=== PATIENT | female | born 1975 | race American Indian/Alaskan Native ===

== ENCOUNTER 2016-09-30 20:31 | Inpatient (IN) | payer MEDICAID, OTHER ==
[2016-09-30 20:32] VITALS: BMI 18.3
[2016-09-30] MEDS ORDERED: Sodium Chloride 0.9% 1,000 ML IV STA (21:06)
--- NOTE | 2016-09-30 21:10 | ED PDOC ---
Arrival/HPI - History of Present Illness Time/Duration: 24 hours Symptom Onset: Sudden Symptom Course: Worsening Quality: Stabbing, Cramping <Jessica Desai - Last Filed: 09/30/16 22:37> <Prudencio Blackwell - Last Filed: 09/30/16 22:51> - General Chief Complaint: Abdominal Pain Time Seen by Provider: 09/30/16 20:37 - History of Present Illness Narrative History of Present Illness (Text): 09/30/16 21:07 40 y/o female with past medical history of pancreatitis and ETOH abuse presents for LUQ abdominal pain that radiates straight back and up to left side of chest. Pain began yesterday suddenly. Pain is constant and has been worsening. Patient states that she thought it was due to constipation and used a laxative and Gas X with minimal relief. Last Bm was yesterday normal in nature. patient denies having any F/C, SOB, dysuria, hematuria, increased urinary frequency, LE pain or swelling. patient drinks ETOH regularly. Last drink was 2 days ago. patient smokes about 12 ppd for about 15 yrs. Denies having any FHx of CAD. (Jessica Desai) Past Medical History - Provider Review Nursing Documentation Reviewed: Yes - Travel History Have you recently traveled outside [place] w/in the past 3 mons?: No - Infectious Disease Hx of Infectious Diseases: None - Reproductive Menopause: No - Cardiac Hx Cardiac Disorders: No - Pulmonary Hx Respiratory Disorders: No - Neurological Hx Neurological Disorder: No - HEENT Hx HEENT Disorder: No - Renal Hx Renal Disorder: No - Endocrine/Metabolic Hx Endocrine Disorders: No - Hematological/Oncological Hx Blood Disorders: No - Integumentary Hx Dermatological Disorder: No - Musculoskeletal/Rheumatological Hx Falls: No - Genitourinary/Gynecological Hx Genitourinary Disorders: No - Psychiatric Hx Substance Use: No - Surgical History Hx Cholecystectomy: Yes - Anesthesia Hx Anesthesia: Yes Hx Anesthesia Reactions: No <Jessica Desai - Last Filed: 09/30/16 22:37> Family/Social History - Physician Review Nursing Documentation Reviewed: Yes Family/Social History: Unknown Family HX. denies: CAD/MD Smoking Status: Light Smoker < 10 Cigarettes Daily Hx Alcohol Use: Yes (about 3 days a week) Frequency of alcohol use: Socially Hx Substance Use: No <Jessica Desai - Last Filed: 09/30/16 22:37> Allergies/Home Meds <Jessica Desai - Last Filed: 09/30/16 22:37> <Prudencio Blackwell - Last Filed: 09/30/16 22:51> Allergies/Adverse Reactions: Allergies No Known Allergies Allergy (Verified 09/30/16 20:48) Home Medications: Home Meds Medication Instructions Recorded Confirmed No Known Home Med 09/30/16 09/30/16 Review of Systems - Review of Systems Constitutional: Normal. absent: Fatigue, Fevers Eyes: Normal. absent: Eye Pain ENT: Normal. absent: Sore Throat, Rhinorrhea, Sinus Congestion Respiratory: Normal. absent: SOB, Cough, Sputum, Wheezing Cardiovascular: Chest Pain. absent: Palpitations, Edema, Calf Pain Gastrointestinal: Abdominal Pain (LUQ radiating to chest and back ), Nausea. absent: Constipation, Diarrhea, Vomiting, Hematemesis Genitourinary Female: Normal. absent: Dysuria, Frequency, Hematuria, Urine Output Changes Musculoskeletal: Back Pain. absent: Arthralgias, Neck Pain, Joint Swelling Skin: Normal. absent: Rash, Pruritis, Skin Lesions Neurological: absent: Headache, Dizziness Endocrine: Normal. absent: Diaphoresis, Polyuria, Polydipsia Hemo/Lymphatic: Normal. absent: Adenopathy, Easy Bleeding Psychiatric: Anxiety. absent: Depression <Jessica Desai - Last Filed: 09/30/16 22:37> Physical Exam Vital Signs Reviewed: Yes Temperature: Afebrile Blood Pressure: Normal Pulse: Regular Respiratory Rate: Normal Appearance: Positive for: Well-Appearing, Non-Toxic, Comfortable Pain Distress: Moderate Mental Status: Positive for: Alert and Oriented X 3 - Systems Exam Head: Present: Atraumatic, Normocephalic Mouth: Present: Moist Mucous Membranes Respiratory/Chest: Present: Clear to Auscultation, Good Air Exchange. No: Respiratory Distress, Accessory Muscle Use, Wheezes, Rales, Rhonchi Cardiovascular: Present: Regular Rate and Rhythm, Normal S1, S2. No: Murmurs, Rub, Gallop, Muffled Abdomen: Present: Tenderness (LUQ and epigastric ), Normal Bowel Sounds, Guarding. No: Distention, Peritoneal Signs, Rebound Lower Extremity: Present: Normal Inspection, NORMAL PULSES. No: Edema, CALF TENDERNESS Neurological: Present: GCS=15, Speech Normal. No: Motor Func Grossly Intact Skin: Present: Warm, Dry, Normal Color. No: Rashes, Cold, Pale Psychiatric: Present: Alert, Oriented x 3, Normal Insight, Normal Concentration , Anxious <Jessica Desai - Last Filed: 09/30/16 22:37> Medical Decision Making - EKG Interpretation Interpreted by ED Physician: Yes Type: 12 lead EKG <Jessica Desai - Last Filed: 09/30/16 22:37> - Lab Interpretations I have reviewed the lab results: Yes - EKG Interpretation Interpreted by ED Physician: Yes Type: 12 lead EKG <Prudencio Blackwell - Last Filed: 09/30/16 22:51> ED Course and Treatment: 09/30/16 21:13 40 y/o F wpresents for LUQ abd pain radiating to back and chest likely 2/2 acute pancreatitis vs. GERD vs. nephrolithiasis vs. CAD Will check CBC, CMP, lipase, cardiac enzymes, EKG and CT abd/pelvis without contrast, urinalysis and urine HCG Patient will be given NS 1 L bolus, tylenol for pain and Ativan 1 mg IV for ETOH withdrawal. 09/30/16 22:03 Lipase is noted to be 1200. Dr. Dias is contacted and accepts patient under hospitalists service. (Jessica Desai) Impression: Pt seen and evaluated with manager medical. Pt, whose past medical history includes pancreatitis and alcohol abuse, presented for LUQ pain radiating to back and left chest. Pt regularly drinks alcohol, last drink was 2 days prior. Aware and agree with HPI, clinical findings, plan, and management. Plan: -- CT Abdomen and Pelvis w/o contrast -- EKG -- Chest X-ray -- Labs, lipase, cardiac enzymes -- Urinalysis -- IV fluids -- Tylenol -- Ativan -- Reassess and disposition 09/30/16 22:05 Case discussed with manager medical fiberglass bonding machine tender, who is aware and agrees with plan. Case discussed with Dr. Dias, who is aware and agrees with plan. Accepts pt in to hospitalist service. Pt will be admitted to Telemetry for pancreatitis and alcohol withdrawal syndrome. (Prudencio Blackwell) - Lab Interpretations Lab Results: 09/30/16 21:20 09/30/16 21:20 Lab Results 09/30/16 21:20: Sodium 135, Potassium 3.7, Chloride 94 L, Carbon Dioxide 27, Anion Gap 18, BUN 6 L, Creatinine 0.6, Est GFR ( Amer) > 60, Est GFR (Non -Af Amer) > 60, Random Glucose 92, Calcium 9.6, Total Bilirubin 1.2, AST 215 H, ALT 92 H, Alkaline Phosphatase 124, Lactate Dehydrogenase 817 H, Total Creatine Kinase 145, Troponin I < 0.01, Total Protein 8.2, Albumin 4.5, Globulin 3.7, Albumin/Globulin Ratio 1.2, Lipase 1213 H 09/30/16 21:20: WBC 4.6, RBC 4.69, Hgb 12.2, Hct 34.4 L, MCV 73.3 L, MCH 26.0, MCHC 35.5, RDW 19.9 H, Plt Count 115 L, MPV 8.9 - RAD Interpretation Radiology Orders: 09/30/16 21:02 CHEST PORTABLE [RAD] Stat 09/30/16 21:06 ABD & PELVIS W/O PO OR IV CONT [CT] Stat - EKG Interpretation EKG Interpretation (Text): 09/30/16 21:58 NSR HR of 67. No ST changes, normal axis, normal intervals (Karim,Jessica) - Medication Orders Current Medication Orders: Sodium Chloride (Sodium Chloride 0.9%) 1,000 mls @ 200 mls/hr IV .Q5H ARLENE Discontinued Medications Acetaminophen (Tylenol 325mg Tab) 650 mg PO STAT STA Stop: 09/30/16 21:07 Last Admin: 09/30/16 22:05 Dose: Sodium Chloride (Sodium Chloride 0.9%) 1,000 mls @ 999 mls/hr IV .Q1H1M STA Stop: 09/30/16 22:06 Last Admin: 09/30/16 21:36 Dose: 999 mls/hr Ketorolac Tromethamine (Toradol) 30 mg IVP STAT STA Stop: 09/30/16 21:51 Last Admin: 09/30/16 22:04 Dose: 30 mg Lorazepam (Ativan) 0.5 mg IVP ONCE ONE PRN Reason: Protocol Stop: 09/30/16 21:15 Last Admin: 09/30/16 21:35 Dose: 0.5 mg Ondansetron HCl (Zofran Inj) 4 mg IVP ONCE ONE Stop: 09/30/16 21:41 Last Admin: 09/30/16 21:45 Dose: 4 mg Ondansetron HCl (Zofran Inj) Confirm Administered Dose 4 mg .ROUTE .STK-MED ONE Stop: 09/30/16 21:43 Last Admin: 09/30/16 21:44 Dose: - PA / DRAWING INSTRUCTOR / Resident Statement NURIA has reviewed & agrees with the documentation as recorded. NURIA has examined the patient and agrees with the treatment plan. <Prudencio Blackwell - Last Filed: 09/30/16 22:51> Disposition/Present on Arrival - Present on Arrival Any Indicators Present on Arrival: No History of DVT/PE: No History of Uncontrolled Diabetes: No Urinary Catheter: No History of Decub. Ulcer: No History Surgical Site Infection Following: None - Disposition Have Diagnosis and Disposition been Completed?: Yes Disposition Time: 22:03 Patient Plan: Admission <Jessica Desai - Last Filed: 09/30/16 22:37> <Prudencio Blackwell - Last Filed: 09/30/16 22:51> - Disposition Diagnosis: Pancreatitis Disposition: HOSPITALIZED Patient Problems: Current Active Problems Problem Status Onset Pancreatitis Acute Condition: STABLE
[2016-09-30 21:32] LABS: HEMATOCRIT 34.4 % (36.0-48.0); MEAN CELL VOLUME 73.3 fl (80.0-105.0); MEAN CORPUSCULAR HGB CONC 35.5 g/dl (31.0-37.0); MEAN PLATELET VOLUME 8.9 fl (7.0-11.0); RED CELL DISTRIBUTION WIDTH 19.9 % (11.5-14.5); WHITE BLOOD COUNT 4.6 10^3/ul (4.5-11.0)
[2016-09-30 21:45] LABS: ALB/GLOB RATIO 1.2 (1.1-1.8); ALKALINE PHOSPHATASE 124 U/L (38-133); ALT/SGPT 92 U/L (7-56); AST/SGOT 215 U/L (15-39); BILIRUBIN,TOTAL 1.2 mg/dL (0.2-1.3); BLOOD UREA NITROGEN 6 mg/dL (7-21); CALCIUM 9.6 mg/dL (8.4-10.5); CARBON DIOXIDE 27 mmol/L (21-33); CHLORIDE 94 mmol/L (98-107); GFR AFRICAN-AMERICAN > 60; GLUCOSE,RANDOM 92 mg/dL (70-110); LIPASE 1213 U/L (23-300); POTASSIUM 3.7 mmol/L (3.6-5.0); SODIUM 135 mmol/L (132-148); TOTAL PROTEIN 8.2 g/dL (5.8-8.3)
[2016-09-30 21:56] LABS: TROPONIN I < 0.01 ng/mL
[2016-09-30] MEDS ORDERED: Sodium Chloride 0.9% 1,000 ML IV SCH (22:15)
[2016-09-30 22:20] LABS: PH,URINE 7.5 (4.7-8.0); URINE BILIRUBIN MODERATE (NEGATIVE); URINE BLOOD NEGATIVE (NEGATIVE); URINE GLUCOSE (UA) NEGATIVE (NEGATIVE); URINE KETONE >=80 mg/dL (NEGATIVE); URINE LEUKOCYTE ESTERASE TRACE Leu/uL (NEGATIVE); URINE PROTEIN 100 mg/dL (<30 mg/dL)
[2016-09-30 22:49] LABS: URINE APPEARANCE CLEAR (CLEAR); URINE COLOR YELLOW (YELLOW)
[2016-09-30 22:51] LABS: URINE BACTERIA RARE (NEG)
--- NOTE | 2016-09-30 23:45 | CT ---
EXAM: CT Abdomen and Pelvis Without Intravenous Contrast CLINICAL HISTORY: 40 years old, female; Pain; Abdominal pain; Acute TECHNIQUE: Axial computed tomography images of the abdomen and pelvis without intravenous contrast. All CT scans at this facility use one or more dose reduction techniques, viz.: automated exposure control; ma/kV adjustment per patient size (including targeted exams where dose is matched to indication; i.e. head); or iterative reconstruction technique. Coronal and sagittal reformatted images were created and reviewed. COMPARISON: CT - ABD PELVIS IV CONTRAST ONLY 03/12/2016 3:49:01 AM FINDINGS: Lower thorax: The bilateral lung bases are clear. ABDOMEN: Liver: Marked steatosis. Hepatomegaly. Gallbladder and bile ducts: The gallbladder is surgically absent. No intra-extrahepatic biliary ductal dilation. Pancreas: Enlargement of the head of the pancreas, with edema and loss of normal fatty lobulation. Peripancreatic fat stranding is also present, along with trace free fluid. Inflammatory change adjacent to Spleen: No acute findings. Adrenals: No acute findings. Kidneys and ureters: No obstructing stones. No hydronephrosis. PELVIS: Bladder: No acute findings. Reproductive: No acute findings. Appendix: The appendix is of normal-caliber (series 2, image 113; series 601, image 41). ABDOMEN and PELVIS: Stomach and bowel: As above.. Peritoneum: As above. Lymph nodes: Limited evaluation without intravenous contrast. Vasculature: Unremarkable. Bones: No acute fracture. IMPRESSION: Findings consistent with acute pancreatitis, as detailed above.
[2016-10-01] MEDS: Morphine 2 mg/ml ISec IVP PRN ×4 (01:00→22:41)
[2016-10-01] MEDS: Lactated Ringer's 1,000 ML IV SCH ×5 (01:01→21:23)
[2016-10-01 07:46] LABS: ADD MANUAL DIFF? NO
[2016-10-01 08:04] LABS: ALB/GLOB RATIO 1.2 (1.1-1.8); ALKALINE PHOSPHATASE 101 U/L (38-133); ALT/SGPT 74 U/L (7-56); AST/SGOT 133 U/L (15-39); BLOOD UREA NITROGEN 5 mg/dL (7-21); CALCIUM 8.6 mg/dL (8.4-10.5); CARBON DIOXIDE 25 mmol/L (21-33); CHLORIDE 96 mmol/L (98-107); GFR AFRICAN-AMERICAN > 60; GLUCOSE,RANDOM 69 mg/dL (70-110); MAGNESIUM 1.1 mg/dL (1.7-2.2); POTASSIUM 3.4 mmol/L (3.6-5.0); SODIUM 133 mmol/L (132-148); TOTAL PROTEIN 6.6 g/dL (5.8-8.3)
--- NOTE | 2016-10-01 08:04 | CP.PCM.HP ---
<ShivaBranden - Last Filed: 10/01/16 08:27> History of Present Illness - History of Present Illness History of Present Illness: IM H&P for hospitalist service CC: Abdominal pain, nausea, emesis HPI: This is a 40 yo AA F with PMH of EtOH abuse, Substance abuse, and pancreatitis who presents with complaint of intermittent sharp abdominal pain x2 days with accompanying nausea and 2x episodes of non-bloody non-bilious emesis today. Patient reports similar pains in the past, and initially attempted to wait the pain out yesterday, but as it got worse and she began vomitting, she presented to the ED. Also reports pain radiating to left chest. Denies shortness of breath, fevers/chills, constipation, focal weakness, or dizziness, but admits to watery diarrhea x 1 day. Hx of cholecystectomy 1 yr prior, reports no issues with retained stones in the past. Remainder of 12- point ROS review negative. PMH: as above PSH: Cholecystectomy 2015 SHx: admits ciagrettes (1/2 pack per day intermittently over 15 years), EtOH (2 + glasses of vodka daily), denies illicits/IVDA but UTox (+) for Opiates/Cocaine /Canabinoids FHx: Denies PMD: None Present on Admission - Present on Admission Any Indicators Present on Admission: No History of DVT/PE: No History of Uncontrolled Diabetes: No Urinary Catheter: No Review of Systems - Review of Systems All systems: reviewed and no additional remarkable complaints except (as per HPI ) Past Patient History - Infectious Disease Hx of Infectious Diseases: None - Past Social History Smoking Status: Never Smoked - CARDIAC Hx Cardiac Disorders: No - PULMONARY Hx Respiratory Disorders: No - NEUROLOGICAL Hx Neurological Disorder: No - HEENT Hx HEENT Problems: No - RENAL Hx Chronic Kidney Disease: No - ENDOCRINE/METABOLIC Hx Endocrine Disorders: No - HEMATOLOGICAL/ONCOLOGICAL Hx Blood Disorders: No - INTEGUMENTARY Hx Dermatological Problems: No - MUSCULOSKELETAL/RHEUMATOLOGICAL Hx Falls: No - GASTROINTESTINAL Hx Gall Bladder Disease: Yes Other/Comment: pancreatitis. alcohol abuse - GENITOURINARY/GYNECOLOGICAL Hx Genitourinary Disorders: No - PSYCHIATRIC Hx Substance Use: No - SURGICAL HISTORY Hx Cholecystectomy: Yes - ANESTHESIA Hx Anesthesia: Yes Hx Anesthesia Reactions: No Meds Allergies/Adverse Reactions: Allergies Allergy/AdvReac Type Severity Reaction Status Date / Time No Known Allergies Allergy Verified 09/30/16 20:48 Physical Exam - Constitutional Appears: Non-toxic, No Acute Distress, Chronically Ill - Head Exam Head Exam: ATRAUMATIC, NORMAL INSPECTION, NORMOCEPHALIC - Eye Exam Eye Exam: EOMI, Normal appearance. absent: Conjunctival injection, Scleral icterus Pupil Exam: absent: Irregular, Unequal - ENT Exam ENT Exam: Mucous Membranes Moist - Neck Exam Neck exam: Positive for: Lymphadenopathy, Thyromegaly - Respiratory Exam Respiratory Exam: Clear to Auscultation Bilateral, NORMAL BREATHING PATTERN. absent: Accessory Muscle Use, Chest Wall Tenderness, Decreased Breath Sounds, Prolonged Expiratory Phase, Rales, Rhonchi, Wheezes, Respiratory Distress, Stridor - Cardiovascular Exam Cardiovascular Exam: Clicks, REGULAR RHYTHM, RRR, +S1, +S2, Systolic Murmur. absent: Bradycardia, Tachycardia, Irregular Rhythm, +S4 - GI/Abdominal Exam GI & Abdominal Exam: Diminished Bowel Sounds, Soft, Tenderness (primarily epigastric, some along bilateral lower quadrants extending into flanks L>R). absent: Hyperactive Bowel Sounds, Hypoactive Bowel Sounds, Normal Bowel Sounds, Organomegaly - Rectal Exam Rectal Exam: Deferred - Extremities Exam Extremities exam: Positive for: normal inspection, pedal pulses present. Negative for: calf tenderness, pedal edema, tenderness - Back Exam Back exam: CVA tenderness (L) (L>R), CVA tenderness (R) (mild), NORMAL INSPECTION. absent: paraspinal tenderness, rash noted - Neurological Exam Neurological exam: Alert, Oriented x3 - Psychiatric Exam Psychiatric exam: Anxious, Normal Affect - Skin Skin Exam: Dry, Intact, Normal Color, Warm Results - Vital Signs Recent Vital Signs: Last Vital Signs Temp 98.8 F 10/01/16 05:22 Pulse 59 L 10/01/16 05:22 Resp 20 10/01/16 05:22 BP 145/62 10/01/16 05:22 Pulse Ox 99 10/01/16 05:22 - Labs Result Diagrams: 10/01/16 07:42 10/01/16 07:42 Labs: Laboratory Results - last 24 hr 10/01/16 10/01/16 00:45 04:00 Beta HCG, Quant < 2.39 Urine Opiates Screen Positive H Urine Methadone Screen Negative Ur Barbiturates Screen Negative Ur Phencyclidine Scrn Negative Ur Amphetamines Screen Negative U Benzodiazepines Scrn Negative U Oth Cocaine Metabols Positive H U Cannabinoids Screen Positive H Assessment & Plan - Assessment and Plan (Free Text) Assessment: This is a 40 yo AA F with PMH of EtOH abuse, Substance abuse, and pancreatitis who presents with complaint of intermittent sharp abdominal pain x2 days with accompanying nausea and 2x episodes of non-bloody non-bilious emesis today. She is being admitted for pancreatitis, 2/2 alcohol abuse vs retained gallstone. Plan: 1) Abdominal Pain with nausea and emesis -likely pancreatitis 2/2 alcohol abuse vs gallstone pacreatitis vs eteritis -Lipase in the ED 1213, TBili wnl, AST 215, ALT 92, Alk Phos 124 -Alcohol level < 10, but UTox positive for cocaine, opiates, and cannabinoids -NPO, LR at 200cc/hr, pain control with morphine 2q4 IV PRN -GI consulted, appreciate all recs -Protonix for GI ppx, Zofran PRN for nausea/emesis 2) Abdominal pain radiating to chest -likely 2/2 pancreatitis, but need to rule out ACS -Trop in ED negative x1, trend 2 more q8 -EKG in ED sinus 3) Polysubstance abuse -patient denies abuse, only admits to regular EtOH use but doesn't believe to be a problem, 0/4 on CAGE questionnaire -watch for withdrawal and manage accordingly -patient continues to denies abusing other substances despite UTox results, no utility in consulting Psych at this time Dispo: Telemetry, pending ACS r/o and IVF rehydration, pending GI eval and input FEN: NPO, LR 200cc/hr Access: Peripheral IV Consults: GI Ppx: Protonix for GI, SCDs for DVT Patient reviewed and discussed with attending, Dr. Dias. Decision To Admit - Pt Status Changed To: Hospital Disposition Of: Inpatient Admission - Admit Certification Admit to Inpatient:: After my assessment, the patient will require hospitalization for at least two midnights. This is because of the severity of symptoms shown, intensity of services needed, and/or the medical risk in this patient being treated as an outpatient. - . Bed Request Type: Telemetry <Betzy Dias - Last Filed: 10/01/16 22:59> Results - Vital Signs Recent Vital Signs: Last Vital Signs Temp 98.6 F 10/01/16 16:33 Pulse 106 H 10/01/16 18:00 Resp 21 10/01/16 16:33 BP 149/90 10/01/16 16:33 Pulse Ox 99 10/01/16 05:22 - Labs Result Diagrams: 10/01/16 07:42 10/01/16 07:42 Labs: Laboratory Results - last 24 hr 10/01/16 10/01/16 10/01/16 00:45 04:00 07:42 WBC 5.4 RBC 4.37 Hgb 11.3 L Hct 31.4 L MCV 71.9 L MCH 25.9 MCHC 36.0 RDW 19.4 H Plt Count 100 L MPV 9.8 Gran % 50.8 Lymph % (Auto) 36.4 H [place] % (Auto) 11.3 H Eos % (Auto) 0.9 L Baso % (Auto) 0.6 Gran # 2.75 Lymph # 2.0 [place] # 0.6 Eos # 0.1 Baso # 0.03 Sodium Potassium Chloride Carbon Dioxide Anion Gap BUN Creatinine Est GFR ( Amer) Est GFR (Non-Af Amer) Random Glucose Calcium Phosphorus Magnesium Total Bilirubin AST ALT Alkaline Phosphatase Troponin I Total Protein Albumin Globulin Albumin/Globulin Ratio Beta HCG, Quant < 2.39 Urine Opiates Screen Positive H Urine Methadone Screen Negative Ur Barbiturates Screen Negative Ur Phencyclidine Scrn Negative Ur Amphetamines Screen Negative U Benzodiazepines Scrn Negative U Oth Cocaine Metabols Positive H U Cannabinoids Screen Positive H 10/01/16 10/01/16 10/01/16 07:42 09:10 16:51 WBC RBC Hgb Hct MCV MCH MCHC RDW Plt Count MPV Gran % Lymph % (Auto) [place] % (Auto) Eos % (Auto) Baso % (Auto) Gran # Lymph # [place] # Eos # Baso # Sodium 133 Potassium 3.4 L Chloride 96 L Carbon Dioxide 25 Anion Gap 15 BUN 5 L Creatinine 0.6 Est GFR ( Amer) > 60 Est GFR (Non-Af Amer) > 60 Random Glucose 69 L Calcium 8.6 Phosphorus 3.0 Magnesium 1.1 L Total Bilirubin 1.0 AST 133 H ALT 74 H Alkaline Phosphatase 101 Troponin I < 0.01 < 0.01 Total Protein 6.6 Albumin 3.5 Globulin 3.0 Albumin/Globulin Ratio 1.2 Beta HCG, Quant Urine Opiates Screen Urine Methadone Screen Ur Barbiturates Screen Ur Phencyclidine Scrn Ur Amphetamines Screen U Benzodiazepines Scrn U Oth Cocaine Metabols U Cannabinoids Screen Attending/Attestation - Attestation I have personally seen and examined this patient.: Yes I have fully participated in the care of the patient.: Yes I have reviewed all pertinent clinical information: Yes Notes (Text): 10/01/16 22:58 Agree with history, physical examination, assessment and plan. Patient was seen when she was in bed # 6 in the ER.
[2016-10-01 08:15] LABS: BASO % 0.6 % (0.0-3.0); EOS % 0.9 % (1.5-5.0); GRAN % 50.8 % (50.0-68.0); HEMATOCRIT 31.4 % (36.0-48.0); LYMPH % 36.4 % (22.0-35.0); MEAN CELL VOLUME 71.9 fl (80.0-105.0); MEAN CORPUSCULAR HEMOGLOBIN 25.9 pg (25.0-35.0); MEAN PLATELET VOLUME 9.8 fl (7.0-11.0); MONO % 11.3 % (1.0-6.0); PLATELET COUNT 100 10^3/uL (120.0-450.0); RED CELL DISTRIBUTION WIDTH 19.4 % (11.5-14.5); WHITE BLOOD COUNT 5.4 10^3/ul (4.5-11.0)
[2016-10-01 08:16] LABS: BASO # 0.03 K/mm3 (0.0-2.0); EOS # 0.1 (0.0-0.7); GRAN # 2.75 (1.4-6.5); MONO # 0.6 (0.1-0.6)
--- NOTE | 2016-10-01 08:59 | RAD ---
HISTORY: Chest pain. Technique: Portable study performed @ 22:25. COMPARISON: 03/12/2016. FINDINGS: LUNGS: No active pulmonary disease. PLEURA: No significant pleural effusion identified, no pneumothorax apparent. CARDIOVASCULAR: Normal. OSSEOUS STRUCTURES: No significant abnormalities. VISUALIZED UPPER ABDOMEN: Normal. OTHER FINDINGS: None. IMPRESSION: No active disease. No significant interval change compared to the prior examination(s). No preliminary report provided by emergency department personnel.
[2016-10-01] MEDS ORDERED: Potassium Chloride 40 mEq/30 ml LIQ UD PO ONE (13:39)
[2016-10-01] MEDS: Enoxaparin 40 mg Syringe SC SCH (13:57)
--- NOTE | 2016-10-01 13:58 | CARD ---
APPROVED REPORT EKG Measurement Heart [id number] <Conclusion> Normal sinus rhythm Normal ECG
--- NOTE | 2016-10-02 00:56 | CON ---
DATE: 10/01/2016 REQUESTING PHYSICIAN: Dr. Cunningham. REASON FOR CONSULTATION: I have been asked to see this 40-year-old female, who comes to the hospital with a 1-day history of abdominal pain. The patient has a known history of alcohol and polysubstance abuse. She had four shots of tequila several days ago. The patient was hospitalized 7 months ago with alcohol-induced pancreatitis. She had a cholecystectomy last year. CT scan of the abdomen and pelvis reveals an enlarged head of the pancreas secondary to edema with peripancreatic inflammation and fluid. A urine tox screen is positive for cannabis, opiates and cocaine. PAST MEDICAL HISTORY: Notable for alcohol-induced pancreatitis, polysubstance abuse. SOCIAL HISTORY: She consumes alcohol on an excessive basis. She smokes marijuana. She denies opiates or cocaine use, but these were positive in her urine. FAMILY HISTORY: Noncontributory. REVIEW OF SYSTEMS: A 14-point review of systems is notable for abdominal pain, nausea and vomiting. PHYSICAL EXAMINATION: GENERAL: A well-developed female lying in bed in no acute distress. VITAL SIGNS: Reveal a temperature of 97, blood pressure 143/93, heart rate 70. HEENT: Reveal sclerae to be white. Conjunctivae pale. NECK: Supple. CHEST: Reveal lungs to be clear. HEART: Reveals regular rate and rhythm. ABDOMEN: Soft. There is mild midabdominal tenderness. No rebound. No guarding. EXTREMITIES: Show no edema. LABORATORY DATA: Reveal white blood cell count 5.4, hemoglobin 11.3. Chemistries reveal potassium 3.4, AST 133, ALT 74. Lipase was 1213. IMPRESSION: This is a 40-year-old female with polysubstance abuse including marijuana, cocaine, opiates, alcohol with a recurrent acute pancreatitis. RECOMMENDATIONS: 1. Continue IV fluids. 2. N.p.o. 3. Analgesics. 4. Zofran as needed for vomiting. Tristan Delgado MD
[2016-10-02] MEDS: Lactated Ringer's 1,000 ML IV SCH ×4 (02:49→16:00)
[2016-10-02 05:58] LABS: ADD MANUAL DIFF? NO
[2016-10-02 06:01] LABS: BASO # 0.02 K/mm3 (0.0-2.0); BASO % 0.4 % (0.0-3.0); EOS # 0.1 (0.0-0.7); EOS % 1.4 % (1.5-5.0); GRAN % 58.2 % (50.0-68.0); HEMATOCRIT 32.5 % (36.0-48.0); LYMPH # 1.6 (1.2-3.4); LYMPH % 30.5 % (22.0-35.0); MEAN CELL VOLUME 74.4 fl (80.0-105.0); MEAN CORPUSCULAR HEMOGLOBIN 25.6 pg (25.0-35.0); MEAN CORPUSCULAR HGB CONC 34.5 g/dl (31.0-37.0); MONO # 0.5 (0.1-0.6); MONO % 9.5 % (1.0-6.0); PLATELET COUNT 97 10^3/uL (120.0-450.0); RED CELL DISTRIBUTION WIDTH 19.1 % (11.5-14.5); WHITE BLOOD COUNT 5.2 10^3/ul (4.5-11.0)
[2016-10-02] MEDS: Morphine 2 mg/ml ISec IVP PRN ×3 (06:31→20:09)
[2016-10-02 06:46] LABS: ALB/GLOB RATIO 1.2 (1.1-1.8); ALKALINE PHOSPHATASE 105 U/L (38-133); ALT/SGPT 62 U/L (7-56); AST/SGOT 94 U/L (15-39); BILIRUBIN,TOTAL 0.8 mg/dL (0.2-1.3); BLOOD UREA NITROGEN < 2 mg/dL (7-21); CARBON DIOXIDE 30 mmol/L (21-33); CHLORIDE 93 mmol/L (95-110); GFR AFRICAN-AMERICAN > 60; GLUCOSE,RANDOM 97 mg/dL (70-110); POTASSIUM 3.5 mmol/L (3.6-5.0); SODIUM 134 mmol/L (132-148)
[2016-10-02] MEDS ORDERED: Magnesium Sulfate 2 GM in Sodium Chloride 0.9% 100 ML IVPB ONE (07:28)
[2016-10-02] MEDS: Potassium Chloride 20 mEq ER Tab PO SCH ×2 (07:53→08:00)
[2016-10-02] MEDS ORDERED: Potassium Chloride 20 mEq ER Tab PO SCH (08:00)
[2016-10-02] MEDS: Potassium Chloride 40 mEq/30 ml LIQ UD PO SCH ×2 (08:23→12:06)
[2016-10-02] MEDS: Potassium & Sodium Phosphate PO SCH (10:09)
[2016-10-02] MEDS: Enoxaparin 40 mg Syringe SC SCH (10:10)
[2016-10-02] MEDS: Magnesium Oxide 400 mg Tab UD PO SCH ×2 (10:10→17:50)
--- NOTE | 2016-10-02 14:10 | CP.PCM.PN ---
<YANET BRITO - Last Filed: 10/02/16 13:51> Subjective - Date & Time of Evaluation Date of Evaluation: 10/02/16 Time of Evaluation: 09:00 - Subjective Subjective: MEDICINE PROGRESS NOTE: Pt seen and assessed at bedside. Pt has no new complaints at this time and reports that her abdominal pain is "getting better". She does report that it is difficult for her to physically go to the bathroom d/t the amount of monitors that she has been placed on. Pt denies headache, dizziness, fever, chest pain, shortness of breath, N/V, diarrhea, or any urinary symptoms. Objective - Vital Signs/Intake and Output Vital Signs (last 24 hours): Temp Pulse Resp BP Pulse Ox 98.4 F 62 20 145/97 H 99 10/02/16 12:00 10/02/16 12:00 10/02/16 12:00 10/02/16 12:00 10/02/16 06:00 Intake and Output: 10/02/16 10/02/16 06:59 18:59 Intake Total 2940 Output Total 3500 Balance -560 - Medications Medications: Current Medications Enoxaparin Sodium (Lovenox) 40 mg SC DAILY [facility] PRN Reason: Protocol Last Admin: 10/02/16 10:10 Dose: 40 mg Lactated Ringer's (Lactated Ringer's) 1,000 mls @ 200 mls/hr IV .Q5H [facility] Last Admin: 10/02/16 11:15 Dose: Not Given Lorazepam (Ativan) 2 mg PO Q6 PRN; Protocol PRN Reason: withdrawal sx Last Admin: 10/01/16 07:43 Dose: 2 mg Magnesium Oxide (Mag-Ox) 400 mg PO BID [facility] Last Admin: 10/02/16 10:10 Dose: 400 mg Morphine Sulfate (Morphine) 2 mg IVP Q4H PRN PRN Reason: Pain, moderate (4-7) Last Admin: 10/02/16 06:31 Dose: 2 mg Ondansetron HCl (Zofran Inj) 4 mg IVP Q6H PRN PRN Reason: Nausea/Vomiting Last Admin: 10/02/16 09:02 Dose: 4 mg Pantoprazole Sodium (Protonix Inj) 40 mg IVP Q12 [facility] Last Admin: 10/02/16 10:10 Dose: 40 mg Potassium Phos/Sodium Phos (Neutra-Phos) 2 pkt PO DAILY [facility] Last Admin: 10/02/16 10:09 Dose: 2 pkt - Labs Labs: 10/02/16 05:50 10/02/16 05:50 - Constitutional Appears: No Acute Distress - Head Exam Head Exam: NORMAL INSPECTION, NORMOCEPHALIC - Eye Exam Eye Exam: EOMI, Normal appearance, PERRL Pupil Exam: NORMAL ACCOMODATION - ENT Exam ENT Exam: Mucous Membranes Moist, Normal Exam - Neck Exam Neck Exam: Full ROM, Normal Inspection. absent: Lymphadenopathy - Respiratory Exam Respiratory Exam: Clear to Ausculation Bilateral, NORMAL BREATHING PATTERN. absent: Chest Wall Tenderness, Rales, Rhonchi, Wheezes, Respiratory Distress, Stridor - Cardiovascular Exam Cardiovascular Exam: REGULAR RHYTHM, RRR, +S1, +S2. absent: Tachycardia, Irregular Rhythm - GI/Abdominal Exam GI & Abdominal Exam: Soft, Normal Bowel Sounds. absent: Distended, Firm, Guarding, Tenderness - Exam Exam: absent: Bladder Distension - Extremities Exam Extremities Exam: Normal Capillary Refill, Normal Inspection. absent: Calf Tenderness, Pedal Edema - Neurological Exam Neurological Exam: Alert, Awake, Oriented x3 - Psychiatric Exam Psychiatric exam: Normal Affect, Normal Mood - Skin Skin Exam: Dry, Intact, Normal Color, Warm Assessment and Plan - Assessment and Plan (Free Text) Assessment: 40 yo AA F with PMH of alcohol and substance abuse, and pancreatitis who presents with complaint of intermittent sharp abdominal pain found to have pancreatitis Plan: 1. Pancreatitis -continue LR at 200mls/hr -continue morphine 2mg q4h for pain control -continue zofran PRN for N/V -advanced diet from clear liquids to full liquids; will continue to advance as tolerated -continuing to trend lipase daily -GI consulted and following, appreciate all recommendations 2. Alcohol Withdrawal -stable for discontinuation from telemetry monitoring -continue ativan 2mg PO q6h PRN for symptoms of alcohol withdrawal -patient only required one dose of ativan over the past 24 hours 3. Hypokalemia -K+ at 3.5 today -patient unable to tolerate KCl PO so given KCL 40meq total in liquid form -will monitor with daily CMP -patient asymptomatic at this time 4. Hypomagnesemia -Mg at 1.0 today -started MagOx 400mg PO BID -will continue to trend Mg 5. Hypophosphatemia -Phosphorus at 1.1 today -started neutraphos 2 pkt PO daily -will continue to trend phosphorous 6. GI/DVT Prophylaxis -Protonix/scd's Patient seen and case discussed with attending, Dr. Cunningham. <Jonny Cunningham MD - Last Filed: 10/02/16 15:52> Objective - Vital Signs/Intake and Output Vital Signs (last 24 hours): Temp Pulse Resp BP Pulse Ox 98.4 F 62 20 145/97 H 99 10/02/16 12:00 10/02/16 12:00 10/02/16 12:00 10/02/16 12:00 10/02/16 06:00 Intake and Output: 10/02/16 10/02/16 06:59 18:59 Intake Total 2940 Output Total 3500 Balance -560 - Medications Medications: Current Medications Enoxaparin Sodium (Lovenox) 40 mg SC DAILY [facility] PRN Reason: Protocol Last Admin: 10/02/16 10:10 Dose: 40 mg Lactated Ringer's (Lactated Ringer's) 1,000 mls @ 200 mls/hr IV .Q5H [facility] Last Admin: 10/02/16 11:15 Dose: Not Given Lorazepam (Ativan) 2 mg PO Q6 PRN; Protocol PRN Reason: withdrawal sx Last Admin: 10/01/16 07:43 Dose: 2 mg Magnesium Oxide (Mag-Ox) 400 mg PO BID [facility] Last Admin: 10/02/16 10:10 Dose: 400 mg Morphine Sulfate (Morphine) 2 mg IVP Q4H PRN PRN Reason: Pain, moderate (4-7) Last Admin: 10/02/16 06:31 Dose: 2 mg Ondansetron HCl (Zofran Inj) 4 mg IVP Q6H PRN PRN Reason: Nausea/Vomiting Last Admin: 10/02/16 09:02 Dose: 4 mg Pantoprazole Sodium (Protonix Inj) 40 mg IVP Q12 [facility] Last Admin: 10/02/16 10:10 Dose: 40 mg Potassium Phos/Sodium Phos (Neutra-Phos) 2 pkt PO DAILY [facility] Last Admin: 10/02/16 10:09 Dose: 2 pkt - Labs Labs: 10/02/16 05:50 10/02/16 05:50 Attending/Attestation - Attestation I have personally seen and examined this patient.: Yes I have fully participated in the care of the patient.: Yes I have reviewed all pertinent clinical information, including history, physical exam and plan: Yes Notes (Text): 10/02/16 15:50 Patient was seen and examined with medical numerical control operator .Agreed with resident assessment and plan. 40 Yrs old female with PMH of alcohol and drug abuse was admitted with recurrent Pancreatitis due to alcohol abuse, Pain is better, LFT are improving , on clear liquid diet. Thrombocytopenis is due to alcohol abuse.There is no evidence of bleeding.We will monitor platelet count. Hypomagnasemia and Hypokalemia, Electrolye has been replaced, we will monitor. Management plan was discussed in detail with patient. All questions were answered. Education was provided.
--- NOTE | 2016-10-02 15:56 | CARD ---
APPROVED REPORT EKG Measurement Heart [id number] ND [id number] <Conclusion> Sinus bradycardia Otherwise normal ECG
--- NOTE | 2016-10-02 20:10 | PN ---
DATE: 10/02/2016 SUBJECTIVE: The patient is walking around the room. She states that she feels much better. Her abdominal pain is less. She apparently did have one episode of vomiting this morning. She is tolerating a clear liquid diet. She is hungry. PHYSICAL EXAMINATION: VITAL SIGNS: Reveal temperature of 98.3, blood pressure 139/95, heart rate 69. ABDOMEN: Soft. There is less mid abdominal tenderness without any rebound or guarding. LABORATORY DATA: Reveal potassium at 3.5, AST down to 94, ALT 6 2. CBC reveals white blood cell count 5.2, hemoglobin 11.2. IMPRESSION: This 40-year-old female with history of alcohol abuse, polysubstance abuse with acute pancreatitis secondary to alcohol abuse. Clinically, she is improving. She is tolerating clear liquid diet. RECOMMENDATIONS: We will request a repeat lipase today and in the morning. If the patient continues to improve clinically, we will advance to solid foods in the morning, and if tolerated, the patient can be discharged home hopefully tomorrow with outpatient followup. Tristan Delgado MD
[2016-10-03] MEDS: Lactated Ringer's 1,000 ML IV SCH ×3 (02:47→22:45)
[2016-10-03 07:54] LABS: ADD MANUAL DIFF? NO
[2016-10-03 07:55] LABS: BASO # 0.03 K/mm3 (0.0-2.0); BASO % 0.4 % (0.0-3.0); EOS # 0.1 (0.0-0.7); GRAN # 4.73 (1.4-6.5); GRAN % 68.7 % (50.0-68.0); HEMATOCRIT 32.6 % (36.0-48.0); LYMPH # 1.5 (1.2-3.4); LYMPH % 21.5 % (22.0-35.0); MEAN CELL VOLUME 74.8 fl (80.0-105.0); MEAN CORPUSCULAR HEMOGLOBIN 25.9 pg (25.0-35.0); MEAN CORPUSCULAR HGB CONC 34.7 g/dl (31.0-37.0); MEAN PLATELET VOLUME 9.3 fl (7.0-11.0); MONO # 0.6 (0.1-0.6); MONO % 8.4 % (1.0-6.0); PLATELET COUNT 104 10^3/uL (120.0-450.0); RED CELL DISTRIBUTION WIDTH 19.1 % (11.5-14.5); WHITE BLOOD COUNT 6.9 10^3/ul (4.5-11.0)
[2016-10-03 08:13] LABS: ALB/GLOB RATIO 1.2 (1.1-1.8); ALKALINE PHOSPHATASE 105 U/L (38-133); ALT/SGPT 64 U/L (7-56); AST/SGOT 94 U/L (15-39); BILIRUBIN,TOTAL 0.9 mg/dL (0.2-1.3); CALCIUM 9.8 mg/dL (8.4-10.5); CARBON DIOXIDE 25 mmol/L (21-33); CHLORIDE 95 mmol/L (98-107); GFR AFRICAN-AMERICAN > 60; GLUCOSE,RANDOM 113 mg/dL (70-110); POTASSIUM 3.5 mmol/L (3.6-5.0); SODIUM 132 mmol/L (132-148); TOTAL PROTEIN 7.8 g/dL (5.8-8.3)
[2016-10-03 08:21] LABS: BLOOD UREA NITROGEN < 2 mg/dL (7-21)
[2016-10-03 08:54] LABS: MAGNESIUM 1.4 mg/dL (1.7-2.2); PHOSPHOROUS 2.4 mg/dL (2.5-4.5)
[2016-10-03] MEDS: Enoxaparin 40 mg Syringe SC SCH (10:00)
[2016-10-03] MEDS: Magnesium Oxide 400 mg Tab UD PO SCH ×2 (10:00→17:52)
[2016-10-03] MEDS ORDERED: cefTRIAXone 1 gm 1 GM/100 ML BAG IVPB SCH (10:00)
[2016-10-03 12:11] LABS: FREE T4 1.42 ng/dL (0.78-2.19)
[2016-10-03 12:25] LABS: THYROID STIMULATING HORMONE 2.44 mIU/mL (0.46-4.68)
[2016-10-03] MEDS: Potassium & Sodium Phosphate PO SCH (12:33)
[2016-10-03] MEDS: Thiamine 100 mg/ml Inj IM SCH (12:34)
--- NOTE | 2016-10-03 14:37 | PN ---
DATE: 10/03/2016 SUBJECTIVE: The patient is walking around in her room, she is asking to sign out AMA. She is confused with hallucinations, stating that people were trying to break into her apartment. She denies any nausea or vomiting. She admits to some abdominal pain. PHYSICAL EXAMINATION VITAL SIGNS: Reveal temperature of 97.7, blood pressure of 141/106, and heart rate of 124. ABDOMEN: Soft and mild diffuse tenderness. LABORATORY DATA: Revealed hemoglobin of 11.3, and potassium of 3.5. Serum lipase is down to 1070, AST is down to 94, and ALT is 64. IMPRESSION: A 40-year-old female with polysubstance abuse including alcohol, cocaine and marijuana with recurrent pancreatitis secondary to excessive alcohol use now appears to be in withdrawal. RECOMMENDATIONS: 1. Continue supportive treatment including IV fluids. 2. Follow serum lipase. 3. Consider starting a low fat diet, if her lipase continues to trend downward. Tristan Delgado MD
--- NOTE | 2016-10-03 20:44 | CP.PCM.PN ---
Addendum entered and electronically signed by YANET BRITO DO 10/03/16 21:14 : Urinary Tract Infection -urine cultures grew klebsiella -discontinued ceftriaxone and started nitrofurantoin based on sensitivities report -currently afebrile and no leukocytosis Original Note: <YANET BRITO - Last Filed: 10/03/16 20:41> Subjective - Date & Time of Evaluation Date of Evaluation: 10/03/16 Time of Evaluation: 05:45 - Subjective Subjective: MEDICINE PROGRESS NOTE: Pt seen and assessed at bedside. Pt disoriented to place, time or event during interview stating she was in multiple different locations when asked where she was including a job interview as well as her house. Pt was also walking around the medical floor trying to leave AMA and becoming agitated easily at medical staff. ROS unreliable but patient denies any seizures, N/V, chest pain, shortness of breath or abdominal pain. Objective - Vital Signs/Intake and Output Vital Signs (last 24 hours): Temp Pulse Resp BP Pulse Ox 97.9 F 107 H 20 122/91 H 98 10/03/16 16:30 10/03/16 16:30 10/03/16 16:30 10/03/16 16:30 10/03/16 16:30 - Medications Medications: Current Medications Chlordiazepoxide (Librium) 50 mg PO Q6 [facility] PRN Reason: Protocol Last Admin: 10/03/16 17:51 Dose: 50 mg Diphenhydramine HCl (Benadryl) 50 mg PO HS PRN PRN Reason: Insomnia Last Admin: 10/03/16 02:56 Dose: 50 mg Enoxaparin Sodium (Lovenox) 40 mg SC DAILY [facility] PRN Reason: Protocol Last Admin: 10/03/16 10:00 Dose: 40 mg Lactated Ringer's (Lactated Ringer's) 1,000 mls @ 200 mls/hr IV .Q5H [facility] Last Admin: 10/03/16 12:32 Dose: Not Given Ceftriaxone Sodium (Rocephin 1 Gram Ivpb) 1 gm in 100 mls @ 100 mls/hr IVPB DAILY [facility] PRN Reason: Protocol Last Admin: 10/03/16 12:33 Dose: Not Given Lorazepam (Ativan) 4 mg PO Q3 PRN; Protocol PRN Reason: Agitation Last Admin: 10/03/16 17:52 Dose: 4 mg Magnesium Oxide (Mag-Ox) 400 mg PO BID [facility] Last Admin: 10/03/16 17:52 Dose: 400 mg Morphine Sulfate (Morphine) 2 mg IVP Q4H PRN PRN Reason: Pain, moderate (4-7) Last Admin: 10/02/16 20:09 Dose: 2 mg Ondansetron HCl (Zofran Inj) 4 mg IVP Q6H PRN PRN Reason: Nausea/Vomiting Last Admin: 10/02/16 20:09 Dose: 4 mg Pantoprazole Sodium (Protonix Inj) 40 mg IVP Q12 [facility] Last Admin: 10/03/16 12:33 Dose: Not Given Potassium Phos/Sodium Phos (Neutra-Phos) 2 pkt PO DAILY [facility] Last Admin: 10/03/16 12:33 Dose: Not Given Thiamine HCl (Vitamin B1 Inj) 100 mg IM DAILY [facility] Last Admin: 10/03/16 12:34 Dose: Not Given Ziprasidone (Geodon Cap) 20 mg PO Q6H PRN; Protocol PRN Reason: Agitation Last Admin: 10/03/16 11:21 Dose: 20 mg - Labs Labs: 10/03/16 07:50 10/03/16 07:50 - Constitutional Appears: No Acute Distress, Confused - Head Exam Head Exam: ATRAUMATIC, NORMOCEPHALIC - Eye Exam Eye Exam: EOMI, Normal appearance, PERRL - ENT Exam ENT Exam: Mucous Membranes Moist, Normal Exam - Neck Exam Neck Exam: Full ROM. absent: Lymphadenopathy - Respiratory Exam Respiratory Exam: Clear to Ausculation Bilateral, NORMAL BREATHING PATTERN. absent: Rales, Rhonchi, Wheezes, Respiratory Distress - Cardiovascular Exam Cardiovascular Exam: REGULAR RHYTHM, RRR, +S1, +S2 - GI/Abdominal Exam GI & Abdominal Exam: Soft, Normal Bowel Sounds. absent: Distended, Firm, Guarding, Tenderness - Exam Exam: absent: Bladder Distension - Extremities Exam Extremities Exam: Normal Capillary Refill. absent: Calf Tenderness, Pedal Edema , Tenderness - Back Exam Back Exam: absent: CVA tenderness (L), CVA tenderness (R) - Neurological Exam Neurological Exam: Alert, Altered, Awake, Normal Gait - Psychiatric Exam Psychiatric exam: Agitated - Skin Skin Exam: Dry, Intact, Normal Color, Warm Assessment and Plan - Assessment and Plan (Free Text) Assessment: 40 yo AA F with PMH of alcohol and substance abuse, and pancreatitis who presents with complaint of intermittent sharp abdominal pain found to have pancreatitis and is currently going through active alcohol withdrawal. Plan: 1. Acute Pancreatitis -continue LR at 200mls/hr -continue morphine 2mg q4h for pain control -continue zofran PRN for N/V -full liquid diet; will continue to advance as tolerated with possible advancement to low fat diet tomorrow (10/04) -lipase currently downtrending at 1070; continuing to trend lipase daily -GI consulted and following, appreciate all recommendations 2. Alcohol Withdrawal -patient currently going through active withdrawal with most recent CIWA score of 40 -patient required 1-on-1 and eventually physical restraints on 10/03 due to agitation and violent behavior -started librium 50mg q6h for symptoms of alcohol withdrawal -increased ativan to 4mg PO q3h PRN for symptoms of alcohol withdrawal -Geodon PRN for agitation -will continue to monitor with Q4H CIWA assessments/scores -psych consulted, all recommendations appreciated 3. Hypokalemia -K+ at 3.5 today after three attempts at oral replenishment -will correct magnesium and phosphorus and then attempt to replenish again -will monitor with daily CMP -patient asymptomatic at this time 4. Hypomagnesemia -Mg at 1.4 today -continue MagOx 400mg PO BID -will continue to trend Mg 5. Hypophosphatemia -Phosphorus at 2.4 today -continue neutraphos 2 pkt PO daily -will continue to trend phosphorous 6. GI/DVT Prophylaxis -Protonix/scd's Patient seen and case discussed with attending, Dr. Sunny Davis. <Sunny Davis B - Last Filed: 10/03/16 21:30> Objective - Vital Signs/Intake and Output Vital Signs (last 24 hours): Temp Pulse Resp BP Pulse Ox 97.9 F 107 H 20 122/91 H 98 10/03/16 16:30 10/03/16 16:30 10/03/16 16:30 10/03/16 16:30 10/03/16 16:30 - Medications Medications: Current Medications Chlordiazepoxide (Librium) 50 mg PO Q6 [facility] PRN Reason: Protocol Last Admin: 10/03/16 17:51 Dose: 50 mg Diphenhydramine HCl (Benadryl) 50 mg PO HS PRN PRN Reason: Insomnia Last Admin: 10/03/16 02:56 Dose: 50 mg Enoxaparin Sodium (Lovenox) 40 mg SC DAILY [facility] PRN Reason: Protocol Last Admin: 10/03/16 10:00 Dose: 40 mg Folic Acid (Folic Acid) 1 mg PO DAILY [facility] Lactated Ringer's (Lactated Ringer's) 1,000 mls @ 200 mls/hr IV .Q5H [facility] Last Admin: 10/03/16 12:32 Dose: Not Given Lorazepam (Ativan) 4 mg PO Q3 PRN; Protocol PRN Reason: Agitation Last Admin: 10/03/16 17:52 Dose: 4 mg Magnesium Oxide (Mag-Ox) 400 mg PO BID [facility] Last Admin: 10/03/16 17:52 Dose: 400 mg Morphine Sulfate (Morphine) 2 mg IVP Q4H PRN PRN Reason: Pain, moderate (4-7) Last Admin: 10/02/16 20:09 Dose: 2 mg Multivitamins/Minerals (Therapeutic-M Tab) 1 tab PO 0800 [facility] Nitrofurantoin Macrocrystals (Macrobid) 100 mg PO Q12 [facility] Stop: 10/10/16 22:01 Ondansetron HCl (Zofran Inj) 4 mg IVP Q6H PRN PRN Reason: Nausea/Vomiting Last Admin: 10/02/16 20:09 Dose: 4 mg Pantoprazole Sodium (Protonix Inj) 40 mg IVP Q12 [facility] Last Admin: 10/03/16 12:33 Dose: Not Given Potassium Phos/Sodium Phos (Neutra-Phos) 2 pkt PO DAILY [facility] Last Admin: 10/03/16 12:33 Dose: Not Given Thiamine HCl (Vitamin B1 Inj) 100 mg IM DAILY [facility] Last Admin: 10/03/16 12:34 Dose: Not Given Ziprasidone (Geodon Cap) 20 mg PO Q6H PRN; Protocol PRN Reason: Agitation Last Admin: 10/03/16 11:21 Dose: 20 mg - Labs Labs: 10/03/16 07:50 10/03/16 07:50 Attending/Attestation - Attestation I have personally seen and examined this patient.: Yes I have fully participated in the care of the patient.: Yes I have reviewed all pertinent clinical information, including history, physical exam and plan: Yes Notes (Text): I have seen and examined the patient at bedside. Agree with the above note with the following additions/ exceptions: Briefly this is 40 year old female with history of alcohol and drug abuse who was admitted with recurrent pancreatitis secondary to alcohol abuse. Patient's abdominal pain appeared to have resolved however she is disoriented today most likely due to alcohol withdrawal syndrome. Due to patients disruptive behavior code marii was called. 1:1 observation, julissa and wrist restraints were started. Patient was started on librium and ativan. Geodon IM was given. Advised the nurses to start IV line after giving geodon injection. Patient has UTI and is on macrobid. She has thrombocytopenia most likely due to BM suppression due to alcohol abuse. Hypomagnesemia and hypophosphatemia was repleted. Patient has been requesting to leave AMA. Psych consult requested. Upon discharge patient will follow up in [facility] clinic. Dr Sunny Davis
[2016-10-04 06:51] LABS: ADD MANUAL DIFF? NO
[2016-10-04 07:00] LABS: BASO # 0.03 K/mm3 (0.0-2.0); BASO % 0.6 % (0.0-3.0); EOS # 0.1 (0.0-0.7); EOS % 1.7 % (1.5-5.0); GRAN # 2.83 (1.4-6.5); GRAN % 54.4 % (50.0-68.0); HEMATOCRIT 32.7 % (36.0-48.0); LYMPH # 1.7 (1.2-3.4); LYMPH % 32.9 % (22.0-35.0); MEAN CELL VOLUME 75.2 fl (80.0-105.0); MEAN CORPUSCULAR HEMOGLOBIN 25.5 pg (25.0-35.0); MEAN CORPUSCULAR HGB CONC 33.9 g/dl (31.0-37.0); MONO # 0.5 (0.1-0.6); MONO % 10.4 % (1.0-6.0); PLATELET COUNT 126 10^3/uL (120.0-450.0); RED CELL DISTRIBUTION WIDTH 19.3 % (11.5-14.5); WHITE BLOOD COUNT 5.2 10^3/ul (4.5-11.0)
[2016-10-04 07:21] LABS: ALB/GLOB RATIO 1.2 (1.1-1.8); ALKALINE PHOSPHATASE 100 U/L (38-133); ALT/SGPT 64 U/L (7-56); AST/SGOT 100 U/L (15-39); BILIRUBIN,TOTAL 0.7 mg/dL (0.2-1.3); BLOOD UREA NITROGEN 3 mg/dL (7-21); CALCIUM 9.7 mg/dL (8.4-10.5); CARBON DIOXIDE 27 mmol/L (21-33); CHLORIDE 98 mmol/L (98-107); GFR AFRICAN-AMERICAN > 60; GLUCOSE,RANDOM 87 mg/dL (70-110); LIPASE 793 U/L (23-300); MAGNESIUM 1.6 mg/dL (1.7-2.2); PHOSPHOROUS 2.7 mg/dL (2.5-4.5); POTASSIUM 3.5 mmol/L (3.6-5.0); SODIUM 136 mmol/L (132-148); TOTAL PROTEIN 7.4 g/dL (5.8-8.3)
[2016-10-04] MEDS ORDERED: Magnesium Sulfate 1 gm in D5W 1 GM/100 ML BAG IVPB ONE (09:52)
[2016-10-04] MEDS ORDERED: Potassium Chloride 40 mEq/30 ml LIQ UD PO ONE (09:53)
[2016-10-04] MEDS: Thiamine 100 mg/ml Inj IM SCH (09:56)
[2016-10-04] MEDS: Magnesium Oxide 400 mg Tab UD PO SCH ×2 (09:56→17:29)
[2016-10-04] MEDS: Potassium & Sodium Phosphate PO SCH (09:56)
[2016-10-04] MEDS: Lactated Ringer's 1,000 ML IV SCH ×2 (09:57→17:29)
[2016-10-04] MEDS: Enoxaparin 40 mg Syringe SC SCH (09:58)
[2016-10-04] MEDS: Multivitamin With Minerals Tab PO SCH (11:51)
--- NOTE | 2016-10-04 13:19 | PN ---
DATE: 10/04/2016 SUBJECTIVE: The patient continues to have auditory and visual hallucinations. There is no abdominal pain, nausea or vomiting. OBJECTIVE: VITAL SIGNS: Reveal temperature of 98, blood pressure 145/95, heart rate 115. ABDOMEN: Soft, less tenderness. LABORATORY DATA: Revealed white blood cell count 5.2, hemoglobin 11.1. Chemistries reveal lipase down to 793. AST, ALT 100 and 64 respectively. IMPRESSION: A 40-year-old female with auditory and visual hallucinations secondary to drug withdrawal, admitted to the hospital with abdominal pain, secondary to alcohol-induced chronic recurrent pancreatitis. Her lipase is trending downward. RECOMMENDATIONS: 1. Continue observation and treatment for drug withdrawal. 2. Advance to a soft bland diet. Tristan Delgado MD
--- NOTE | 2016-10-04 14:36 | CP.PCM.PN ---
<YANET BRITO - Last Filed: 10/04/16 14:24> Subjective - Date & Time of Evaluation Date of Evaluation: 10/04/16 Time of Evaluation: 09:00 - Subjective Subjective: MEDICINE PROGRESS NOTE: Pt seen and assessed at bedside. Pt has no new complaints at this time. She remains disoriented to time and event but does know who and where she is. She was removed from restraints and agreed to not pull out her IV. Pt denies headache, dizziness, fever, chest pain, shortness of breath, N/V, diarrhea, or any urinary symptoms. Objective - Vital Signs/Intake and Output Vital Signs (last 24 hours): Temp Pulse Resp BP Pulse Ox 98 F 115 H 19 145/95 H 97 10/04/16 08:00 10/04/16 08:00 10/04/16 08:00 10/04/16 08:00 10/04/16 08:00 Intake and Output: 10/04/16 10/04/16 06:59 18:59 Intake Total 1070 Output Total 400 Balance 670 - Medications Medications: Current Medications Chlordiazepoxide (Librium) 50 mg PO Q6 [facility] PRN Reason: Protocol Last Admin: 10/04/16 11:09 Dose: 50 mg Chlordiazepoxide (Librium) 50 mg PO Q4H PRN; Protocol PRN Reason: Agitation Last Admin: 10/04/16 14:00 Dose: 50 mg Diphenhydramine HCl (Benadryl) 50 mg PO HS PRN PRN Reason: Insomnia Last Admin: 10/03/16 02:56 Dose: 50 mg Enoxaparin Sodium (Lovenox) 40 mg SC DAILY [facility] PRN Reason: Protocol Last Admin: 10/04/16 09:58 Dose: Not Given Folic Acid (Folic Acid) 1 mg PO DAILY [facility] Last Admin: 10/04/16 09:56 Dose: 1 mg Lactated Ringer's (Lactated Ringer's) 1,000 mls @ 150 mls/hr IV .Q6H40M [facility] Last Admin: 10/04/16 09:57 Dose: 150 mls/hr Lorazepam (Ativan) 4 mg PO Q3 PRN; Protocol PRN Reason: Agitation Last Admin: 10/04/16 13:59 Dose: 4 mg Magnesium Oxide (Mag-Ox) 400 mg PO BID [facility] Last Admin: 10/04/16 09:56 Dose: 400 mg Morphine Sulfate (Morphine) 2 mg IVP Q4H PRN PRN Reason: Pain, moderate (4-7) Last Admin: 10/02/16 20:09 Dose: 2 mg Multivitamins/Minerals (Therapeutic-M Tab) 1 tab PO 0800 [facility] Last Admin: 10/04/16 11:51 Dose: 1 tab Nitrofurantoin Macrocrystals (Macrobid) 100 mg PO Q12 [facility] Stop: 10/10/16 22:01 Last Admin: 10/04/16 09:56 Dose: 100 mg Ondansetron HCl (Zofran Inj) 4 mg IVP Q6H PRN PRN Reason: Nausea/Vomiting Last Admin: 10/02/16 20:09 Dose: 4 mg Pantoprazole Sodium (Protonix Inj) 40 mg IVP Q12 [facility] Last Admin: 10/04/16 09:56 Dose: 40 mg Potassium Phos/Sodium Phos (Neutra-Phos) 2 pkt PO DAILY [facility] Last Admin: 10/04/16 09:56 Dose: 2 pkt Thiamine HCl (Vitamin B1 Inj) 100 mg IM DAILY [facility] Last Admin: 10/04/16 09:56 Dose: 100 mg Ziprasidone (Geodon Cap) 20 mg PO Q6H PRN; Protocol PRN Reason: Agitation Last Admin: 10/04/16 09:52 Dose: 20 mg - Labs Labs: 10/04/16 06:15 10/04/16 06:15 - Constitutional Appears: No Acute Distress, Confused - Head Exam Head Exam: ATRAUMATIC, NORMOCEPHALIC - Eye Exam Eye Exam: EOMI, Normal appearance, PERRL - ENT Exam ENT Exam: Mucous Membranes Moist, Normal Exam - Neck Exam Neck Exam: Full ROM, Normal Inspection. absent: Lymphadenopathy - Respiratory Exam Respiratory Exam: Clear to Ausculation Bilateral, NORMAL BREATHING PATTERN. absent: Rhonchi, Wheezes, Respiratory Distress - Cardiovascular Exam Cardiovascular Exam: REGULAR RHYTHM, RRR, +S1, +S2. absent: Tachycardia, Murmur - GI/Abdominal Exam GI & Abdominal Exam: Soft, Normal Bowel Sounds. absent: Distended, Firm, Guarding, Tenderness - Exam Exam: absent: Bladder Distension - Extremities Exam Extremities Exam: Normal Capillary Refill, Normal Inspection. absent: Calf Tenderness, Pedal Edema - Back Exam Back Exam: absent: CVA tenderness (L), CVA tenderness (R) - Neurological Exam Neurological Exam: Alert, Awake, Normal Gait, Oriented x3 - Psychiatric Exam Psychiatric exam: Normal Affect, Normal Mood - Skin Skin Exam: Dry, Intact, Normal Color, Warm Assessment and Plan - Assessment and Plan (Free Text) Assessment: 40 yo AA F with PMH of alcohol and substance abuse, and pancreatitis who presents with complaint of intermittent sharp abdominal pain found to have pancreatitis Plan: 1. Acute Pancreatitis -continue LR at 150 mls/hr -continue morphine 2mg q4h for pain control -continue zofran PRN for N/V -regular soft diet; will continue to advance as tolerated -lipase currently downtrending at 793; continuing to trend lipase daily -GI consulted and following, appreciate all recommendations 2. Alcohol Withdrawal -most recent CIWA score is 9 -patient required 1-on-1 and eventually physical restraints on 10/03 due to agitation and violent behavior -physical restraints removed 10/04; will continue to assess need for restraints during hospital stay -continue librium 50mg q6h for symptoms of alcohol withdrawal; will taper when clinically appropriate -continue ativan to 4mg PO q3h PRN for symptoms of alcohol withdrawal -continue folic acid, thiamine, and multivitamin -Geodon PRN for agitation -will continue to monitor with Q4H CIWA assessments/scores -psych consulted, all recommendations appreciated 3. UTI -urine cultures grew klebsiella -started nitrofurantoin 100mg PO q12h (day 1) -afebrile with no leukocytosis at this time 4. Hypokalemia -K+ at 3.5 today after three attempts at oral replenishment -40meq KCl PO given today -will monitor with daily CMP -patient asymptomatic at this time 5. Hypomagnesemia -Mg at 1.6 today -given 1mg Magnesium Sulfate IVPB today -continue MagOx 400mg PO BID -will continue to trend Mg 6. Hypophosphatemia -Phosphorus at 2.7 today -continue neutraphos 2 pkt PO daily -will continue to trend phosphorous 7. GI/DVT Prophylaxis -Protonix/physical activity Patient seen and case discussed with attending, Dr. Sunny Davis. <Sunny Davis - Last Filed: 10/07/16 16:13> Objective - Vital Signs/Intake and Output Vital Signs (last 24 hours): Temp Pulse Resp BP Pulse Ox 98.7 F 93 H 20 109/77 100 10/07/16 15:53 10/07/16 15:53 10/07/16 15:53 10/07/16 15:53 10/07/16 15:53 Intake and Output: 10/07/16 10/07/16 06:59 18:59 Intake Total 420 Balance 420 - Medications Medications: Current Medications Chlordiazepoxide (Librium) 50 mg PO Q4H PRN; Protocol PRN Reason: Agitation Last Admin: 10/04/16 14:00 Dose: 50 mg Chlordiazepoxide (Librium) 25 mg PO Q8 PRN; Protocol PRN Reason: Symptoms of alcohol withdrawl Diphenhydramine HCl (Benadryl) 50 mg PO HS PRN PRN Reason: Insomnia Last Admin: 10/06/16 23:35 Dose: 50 mg Folic Acid (Folic Acid) 1 mg PO DAILY [facility] Last Admin: 10/07/16 10:53 Dose: 1 mg Lactated Ringer's (Lactated Ringer's) 1,000 mls @ 150 mls/hr IV .Q6H40M [facility] Last Admin: 10/06/16 02:36 Dose: Not Given Lorazepam (Ativan) 4 mg PO Q6 [facility] PRN Reason: Protocol Last Admin: 10/07/16 13:26 Dose: 4 mg Magnesium Oxide (Mag-Ox) 400 mg PO BID [facility] Last Admin: 10/07/16 10:53 Dose: 400 mg Multivitamins/Minerals (Therapeutic-M Tab) 1 tab PO 0800 [facility] Last Admin: 10/07/16 10:53 Dose: 1 tab Nitrofurantoin Macrocrystals (Macrobid) 100 mg PO Q12 [facility] Stop: 10/10/16 22:01 Last Admin: 10/07/16 10:53 Dose: 100 mg Ondansetron HCl (Zofran Inj) 4 mg IVP Q6H PRN PRN Reason: Nausea/Vomiting Last Admin: 10/02/16 20:09 Dose: 4 mg Pantoprazole Sodium (Protonix Ec Tab) 40 mg PO 0600,1800 [facility] Last Admin: 10/07/16 06:43 Dose: 40 mg Potassium Phos/Sodium Phos (Neutra-Phos) 2 pkt PO DAILY [facility] Last Admin: 10/07/16 10:54 Dose: 2 pkt Thiamine HCl (Vitamin B1 Inj) 100 mg IM DAILY [facility] Last Admin: 10/07/16 14:27 Dose: 100 mg Ziprasidone (Geodon Cap) 20 mg PO Q6H PRN; Protocol PRN Reason: Agitation Last Admin: 10/05/16 23:28 Dose: 20 mg - Labs Labs: 10/07/16 09:17 10/07/16 09:17 Attending/Attestation - Attestation I have personally seen and examined this patient.: Yes I have fully participated in the care of the patient.: Yes I have reviewed all pertinent clinical information, including history, physical exam and plan: Yes Notes (Text): I have seen and examined the patient at bedside. Agree with the above note with the following additions/ exceptions: Briefly this is 40 year old female with history of alcohol and drug abuse who was admitted with recurrent pancreatitis secondary to alcohol abuse. Patient's abdominal pain appeared to have resolved however she remains disoriented today most likely due to alcohol withdrawal syndrome. Due to patients disruptive behavior code colvin was called yesterday and she was started on restraints and 1:1 observation. As she appears calm, restarints were taken off. Continue librium and ativan. Continue Geodon prn. Advised the nurses to start IV line after giving geodon injection. Patient has UTI and is on macrobid. She has thrombocytopenia most likely due to BM suppression due to alcohol abuse. Hypomagnesemia and hypophosphatemia was repleted. Awaiting Psych consult. Upon discharge patient will follow up in [facility] clinic. Dr Sunny Davis
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
[2016-10-05 07:24] LABS: ADD MANUAL DIFF? NO
[2016-10-05 07:31] LABS: BASO # 0.06 K/mm3 (0.0-2.0); EOS # 0.1 (0.0-0.7); EOS % 1.7 % (1.5-5.0); GRAN # 3.29 (1.4-6.5); GRAN % 54.5 % (50.0-68.0); HEMATOCRIT 32.9 % (36.0-48.0); LYMPH # 1.9 (1.2-3.4); LYMPH % 31.7 % (22.0-35.0); MEAN CORPUSCULAR HEMOGLOBIN 26.3 pg (25.0-35.0); MEAN CORPUSCULAR HGB CONC 34.7 g/dl (31.0-37.0); MEAN PLATELET VOLUME 9.1 fl (7.0-11.0); MONO # 0.7 (0.1-0.6); MONO % 11.1 % (1.0-6.0); PLATELET COUNT 154 10^3/uL (120.0-450.0); RED CELL DISTRIBUTION WIDTH 19.5 % (11.5-14.5)
[2016-10-05 07:39] LABS: ALB/GLOB RATIO 1.3 (1.1-1.8); ALKALINE PHOSPHATASE 99 U/L (38-133); ALT/SGPT 64 U/L (7-56); AST/SGOT 94 U/L (15-39); BILIRUBIN,TOTAL 0.7 mg/dL (0.2-1.3); BLOOD UREA NITROGEN 6 mg/dL (7-21); CALCIUM 9.8 mg/dL (8.4-10.5); CARBON DIOXIDE 28 mmol/L (21-33); CHLORIDE 97 mmol/L (98-107); GFR AFRICAN-AMERICAN > 60; GLUCOSE,RANDOM 129 mg/dL (70-110); PHOSPHOROUS 1.9 mg/dL (2.5-4.5); POTASSIUM 4.4 mmol/L (3.6-5.0); SODIUM 136 mmol/L (132-148); TOTAL PROTEIN 7.9 g/dL (5.8-8.3)
[2016-10-05] MEDS: Multivitamin With Minerals Tab PO SCH (08:38)
[2016-10-05] MEDS: Thiamine 100 mg/ml Inj IM SCH (09:33)
[2016-10-05] MEDS: Potassium & Sodium Phosphate PO SCH (09:33)
[2016-10-05] MEDS: Lactated Ringer's 1,000 ML IV SCH ×2 (09:35→15:22)
[2016-10-05] MEDS: Magnesium Oxide 400 mg Tab UD PO SCH ×2 (09:35→18:46)
--- NOTE | 2016-10-05 13:52 | CP.PCM.PN ---
<YANET BRITO - Last Filed: 10/05/16 13:44> Subjective - Date & Time of Evaluation Date of Evaluation: 10/05/16 Time of Evaluation: 09:00 - Subjective Subjective: MEDICINE PROGRESS NOTE: Pt seen and assessed at bedside. Pt has no new complaints at this time. She remains disoriented to time and event. Pt denies headache, dizziness, fever, chest pain, shortness of breath, N/V, diarrhea, or any urinary symptoms. Objective - Vital Signs/Intake and Output Vital Signs (last 24 hours): Temp Pulse Resp BP Pulse Ox 97.4 F L 95 H 20 126/98 H 100 10/05/16 08:00 10/05/16 08:00 10/05/16 08:00 10/05/16 08:00 10/05/16 08:00 Intake and Output: 10/05/16 10/05/16 06:59 18:59 Intake Total 720 Balance 720 - Medications Medications: Current Medications Chlordiazepoxide (Librium) 50 mg PO Q6 [facility] PRN Reason: Protocol Last Admin: 10/05/16 12:13 Dose: 50 mg Chlordiazepoxide (Librium) 50 mg PO Q4H PRN; Protocol PRN Reason: Agitation Last Admin: 10/04/16 14:00 Dose: 50 mg Diphenhydramine HCl (Benadryl) 50 mg PO HS PRN PRN Reason: Insomnia Last Admin: 10/03/16 02:56 Dose: 50 mg Folic Acid (Folic Acid) 1 mg PO DAILY [facility] Last Admin: 10/05/16 09:34 Dose: 1 mg Lactated Ringer's (Lactated Ringer's) 1,000 mls @ 150 mls/hr IV .Q6H40M [facility] Last Admin: 10/05/16 09:35 Dose: Not Given Lorazepam (Ativan) 4 mg PO Q3 PRN; Protocol PRN Reason: Agitation Last Admin: 10/05/16 09:34 Dose: 4 mg Magnesium Oxide (Mag-Ox) 400 mg PO BID [facility] Last Admin: 10/05/16 09:35 Dose: 400 mg Multivitamins/Minerals (Therapeutic-M Tab) 1 tab PO 0800 [facility] Last Admin: 10/05/16 08:38 Dose: 1 tab Nitrofurantoin Macrocrystals (Macrobid) 100 mg PO Q12 [facility] Stop: 10/10/16 22:01 Last Admin: 10/05/16 09:35 Dose: 100 mg Ondansetron HCl (Zofran Inj) 4 mg IVP Q6H PRN PRN Reason: Nausea/Vomiting Last Admin: 10/02/16 20:09 Dose: 4 mg Pantoprazole Sodium (Protonix Inj) 40 mg IVP Q12 [facility] Last Admin: 10/05/16 09:33 Dose: Not Given Potassium Phos/Sodium Phos (Neutra-Phos) 2 pkt PO DAILY [facility] Last Admin: 10/05/16 09:33 Dose: 2 pkt Thiamine HCl (Vitamin B1 Inj) 100 mg IM DAILY [facility] Last Admin: 10/05/16 09:33 Dose: 100 mg Ziprasidone (Geodon Cap) 20 mg PO Q6H PRN; Protocol PRN Reason: Agitation Last Admin: 10/05/16 09:34 Dose: 20 mg - Labs Labs: 10/05/16 07:24 10/05/16 07:24 - Constitutional Appears: Non-toxic, No Acute Distress - Head Exam Head Exam: ATRAUMATIC, NORMOCEPHALIC - Eye Exam Eye Exam: EOMI, Normal appearance, PERRL Pupil Exam: NORMAL ACCOMODATION - ENT Exam ENT Exam: Mucous Membranes Moist, Normal Exam - Neck Exam Neck Exam: Full ROM, Normal Inspection. absent: Lymphadenopathy - Respiratory Exam Respiratory Exam: Clear to Ausculation Bilateral, NORMAL BREATHING PATTERN. absent: Rales, Rhonchi, Wheezes, Respiratory Distress - Cardiovascular Exam Cardiovascular Exam: REGULAR RHYTHM, RRR, +S1, +S2. absent: Tachycardia, Murmur - GI/Abdominal Exam GI & Abdominal Exam: Soft, Normal Bowel Sounds. absent: Distended, Firm, Guarding, Tenderness - Exam Exam: absent: Bladder Distension - Extremities Exam Extremities Exam: Normal Capillary Refill, Normal Inspection. absent: Calf Tenderness, Pedal Edema, Tenderness - Back Exam Back Exam: absent: CVA tenderness (L), CVA tenderness (R) - Neurological Exam Neurological Exam: Alert, Awake, Normal Gait - Psychiatric Exam Psychiatric exam: Normal Affect, Normal Mood - Skin Skin Exam: Dry, Intact, Normal Color, Warm Assessment and Plan - Assessment and Plan (Free Text) Assessment: 40 yo AA F with PMH of alcohol and substance abuse, and pancreatitis who presents with complaint of intermittent sharp abdominal pain found to have pancreatitis Plan: 1. Acute Pancreatitis -lipase trending downwards with latest at 793 -discontinued IVF -continue morphine 2mg q4h for pain control -continue zofran PRN for N/V -tolerating regular PO intake -GI consulted and following, appreciate all recommendations 2. Alcohol Withdrawal -patient required 1-on-1 and eventually physical restraints on 10/03 due to agitation and violent behavior -physical restraints removed 10/04; will continue to assess need for restraints during hospital stay -most recent CIWA score is 5 -continue librium 50mg Q6H ARLENE and librium 50mg Q4H PRN, per psych, for symptoms of alcohol withdrawal; will taper when clinically appropriate -continue ativan to 4mg PO q3h PRN for symptoms of alcohol withdrawal -continue folic acid, thiamine, and multivitamin -IM Geodon PRN for agitation -will continue to monitor with Q4H CIWA assessments/scores -psych consulted, all recommendations appreciated 3. UTI -urine cultures grew klebsiella -started nitrofurantoin 100mg PO q12h (day 2) -afebrile with no leukocytosis at this time 4. Hypophosphatemia -Phosphorus at 1.9 today -continue neutraphos 2 pkt PO daily -will continue to trend phosphorous 5. Hypokalemia-resolved -K+ at 4.4 today -will monitor with daily CMP 6. Hypomagnesemia-resolved -Mg at 2.0 today -continue MagOx 400mg PO BID -will continue to trend Mg 7. GI/DVT Prophylaxis -Protonix/physical activity Patient seen and case discussed with attending, Dr. Sunny Davis. <Sunny Davis - Last Filed: 10/07/16 16:16> Objective - Vital Signs/Intake and Output Vital Signs (last 24 hours): Temp Pulse Resp BP Pulse Ox 98.7 F 93 H 20 109/77 100 10/07/16 15:53 10/07/16 15:53 10/07/16 15:53 10/07/16 15:53 10/07/16 15:53 Intake and Output: 10/07/16 10/07/16 06:59 18:59 Intake Total 420 Balance 420 - Medications Medications: Current Medications Chlordiazepoxide (Librium) 50 mg PO Q4H PRN; Protocol PRN Reason: Agitation Last Admin: 10/04/16 14:00 Dose: 50 mg Chlordiazepoxide (Librium) 25 mg PO Q8 PRN; Protocol PRN Reason: Symptoms of alcohol withdrawl Diphenhydramine HCl (Benadryl) 50 mg PO HS PRN PRN Reason: Insomnia Last Admin: 10/06/16 23:35 Dose: 50 mg Folic Acid (Folic Acid) 1 mg PO DAILY [facility] Last Admin: 10/07/16 10:53 Dose: 1 mg Lactated Ringer's (Lactated Ringer's) 1,000 mls @ 150 mls/hr IV .Q6H40M [facility] Last Admin: 10/06/16 02:36 Dose: Not Given Lorazepam (Ativan) 4 mg PO Q6 [facility] PRN Reason: Protocol Last Admin: 10/07/16 13:26 Dose: 4 mg Magnesium Oxide (Mag-Ox) 400 mg PO BID [facility] Last Admin: 10/07/16 10:53 Dose: 400 mg Multivitamins/Minerals (Therapeutic-M Tab) 1 tab PO 0800 [facility] Last Admin: 10/07/16 10:53 Dose: 1 tab Nitrofurantoin Macrocrystals (Macrobid) 100 mg PO Q12 [facility] Stop: 10/10/16 22:01 Last Admin: 10/07/16 10:53 Dose: 100 mg Ondansetron HCl (Zofran Inj) 4 mg IVP Q6H PRN PRN Reason: Nausea/Vomiting Last Admin: 10/02/16 20:09 Dose: 4 mg Pantoprazole Sodium (Protonix Ec Tab) 40 mg PO 0600,1800 [facility] Last Admin: 10/07/16 06:43 Dose: 40 mg Potassium Phos/Sodium Phos (Neutra-Phos) 2 pkt PO DAILY [facility] Last Admin: 10/07/16 10:54 Dose: 2 pkt Thiamine HCl (Vitamin B1 Inj) 100 mg IM DAILY [facility] Last Admin: 10/07/16 14:27 Dose: 100 mg Ziprasidone (Geodon Cap) 20 mg PO Q6H PRN; Protocol PRN Reason: Agitation Last Admin: 10/05/16 23:28 Dose: 20 mg - Labs Labs: 10/07/16 09:17 10/07/16 09:17 Attending/Attestation - Attestation I have personally seen and examined this patient.: Yes I have fully participated in the care of the patient.: Yes I have reviewed all pertinent clinical information, including history, physical exam and plan: Yes Notes (Text): I have seen and examined the patient at bedside. Agree with the above note with the following additions/ exceptions: Briefly this is 40 year old female with history of alcohol and drug abuse who was admitted with recurrent pancreatitis secondary to alcohol abuse. Patient's abdominal pain appeared to have resolved however she remains disoriented today most likely due to alcohol withdrawal syndrome. Due to patients disruptive behavior code colvin was called 2 days ago and she was started on restraints and 1:1 observation. As she appears calm, restraints were taken off. Continue librium and ativan. Continue Geodon prn. Patient has UTI and is on macrobid. She has thrombocytopenia most likely due to BM suppression due to alcohol abuse. Hypomagnesemia and hypophosphatemia was replaced. Psych consult appreciated. Upon discharge patient will follow up in [facility] clinic. Dr Sunny Davis 10/07/16 16:15
[2016-10-06] MEDS: Lactated Ringer's 1,000 ML IV SCH (02:36)
[2016-10-06 07:39] LABS: ADD MANUAL DIFF? NO
[2016-10-06 07:42] LABS: BASO # 0.05 K/mm3 (0.0-2.0); EOS # 0.1 (0.0-0.7); EOS % 2.3 % (1.5-5.0); GRAN # 2.27 (1.4-6.5); GRAN % 47.2 % (50.0-68.0); HEMATOCRIT 30.5 % (36.0-48.0); LYMPH # 1.7 (1.2-3.4); LYMPH % 34.9 % (22.0-35.0); MEAN CELL VOLUME 76.3 fl (80.0-105.0); MEAN CORPUSCULAR HEMOGLOBIN 25.8 pg (25.0-35.0); MEAN CORPUSCULAR HGB CONC 33.8 g/dl (31.0-37.0); MEAN PLATELET VOLUME 8.9 fl (7.0-11.0); MONO # 0.7 (0.1-0.6); MONO % 14.6 % (1.0-6.0); PLATELET COUNT 187 10^3/uL (120.0-450.0); RED CELL DISTRIBUTION WIDTH 19.3 % (11.5-14.5); WHITE BLOOD COUNT 4.8 10^3/ul (4.5-11.0)
[2016-10-06 08:01] LABS: ALB/GLOB RATIO 1.2 (1.1-1.8); ALKALINE PHOSPHATASE 83 U/L (38-133); ALT/SGPT 62 U/L (7-56); AST/SGOT 81 U/L (15-39); BILIRUBIN,TOTAL 0.3 mg/dL (0.2-1.3); BLOOD UREA NITROGEN 6 mg/dL (7-21); CALCIUM 9.5 mg/dL (8.4-10.5); CARBON DIOXIDE 25 mmol/L (21-33); CHLORIDE 102 mmol/L (98-107); GFR AFRICAN-AMERICAN > 60; GLUCOSE,RANDOM 88 mg/dL (70-110); MAGNESIUM 1.9 mg/dL (1.7-2.2); PHOSPHOROUS 3.2 mg/dL (2.5-4.5); POTASSIUM 3.7 mmol/L (3.6-5.0); SODIUM 140 mmol/L (132-148); TOTAL PROTEIN 7.1 g/dL (5.8-8.3)
[2016-10-06] MEDS: Multivitamin With Minerals Tab PO SCH (08:20)
[2016-10-06] MEDS: Magnesium Oxide 400 mg Tab UD PO SCH ×2 (10:20→18:16)
[2016-10-06] MEDS: Thiamine 100 mg/ml Inj IM SCH (10:21)
--- NOTE | 2016-10-06 22:40 | CP.PCM.PN ---
<YANET BRITO - Last Filed: 10/06/16 22:33> Subjective - Date & Time of Evaluation Date of Evaluation: 10/06/16 Time of Evaluation: 22:33 - Subjective Subjective: MEDICINE PROGRESS NOTE: Pt seen and assessed at bedside. Pt has no new complaints at this time. She remains disoriented and states that she is at her grandmothers house when asked where she was located. Patient endorses that she has slept most of the last 12 hours prior to this evaluation. Pt denies headache, dizziness, fever, chest pain, shortness of breath, N/V, diarrhea, or any urinary symptoms. Objective - Vital Signs/Intake and Output Vital Signs (last 24 hours): Temp Pulse Resp BP Pulse Ox 97.9 F 89 20 104/76 93 L 10/06/16 16:00 10/06/16 16:00 10/06/16 16:00 10/06/16 16:00 10/06/16 16:00 - Medications Medications: Current Medications Chlordiazepoxide (Librium) 50 mg PO Q6 [place] PRN Reason: Protocol Last Admin: 10/06/16 18:16 Dose: 50 mg Chlordiazepoxide (Librium) 50 mg PO Q4H PRN; Protocol PRN Reason: Agitation Last Admin: 10/04/16 14:00 Dose: 50 mg Diphenhydramine HCl (Benadryl) 50 mg PO HS PRN PRN Reason: Insomnia Last Admin: 10/05/16 23:32 Dose: 50 mg Folic Acid (Folic Acid) 1 mg PO DAILY [facility] Last Admin: 10/06/16 10:20 Dose: 1 mg Lactated Ringer's (Lactated Ringer's) 1,000 mls @ 150 mls/hr IV .Q6H40M [facility] Last Admin: 10/06/16 02:36 Dose: Not Given Lorazepam (Ativan) 4 mg PO Q3 PRN; Protocol PRN Reason: Agitation Last Admin: 10/06/16 21:01 Dose: 4 mg Magnesium Oxide (Mag-Ox) 400 mg PO BID [facility] Last Admin: 10/06/16 18:16 Dose: 400 mg Multivitamins/Minerals (Therapeutic-M Tab) 1 tab PO 0800 [facility] Last Admin: 10/06/16 08:20 Dose: 1 tab Nitrofurantoin Macrocrystals (Macrobid) 100 mg PO Q12 [facility] Stop: 10/10/16 22:01 Last Admin: 10/06/16 21:01 Dose: 100 mg Ondansetron HCl (Zofran Inj) 4 mg IVP Q6H PRN PRN Reason: Nausea/Vomiting Last Admin: 10/02/16 20:09 Dose: 4 mg Pantoprazole Sodium (Protonix Ec Tab) 40 mg PO 0600,1800 [facility] Potassium Phos/Sodium Phos (Neutra-Phos) 2 pkt PO DAILY [facility] Last Admin: 10/05/16 09:33 Dose: 2 pkt Thiamine HCl (Vitamin B1 Inj) 100 mg IM DAILY [facility] Last Admin: 10/06/16 10:21 Dose: 100 mg Ziprasidone (Geodon Cap) 20 mg PO Q6H PRN; Protocol PRN Reason: Agitation Last Admin: 10/05/16 23:28 Dose: 20 mg - Labs Labs: 10/06/16 07:00 10/06/16 07:00 - Constitutional Appears: Non-toxic, No Acute Distress - Head Exam Head Exam: ATRAUMATIC, NORMOCEPHALIC - Eye Exam Eye Exam: EOMI, Normal appearance, PERRL Pupil Exam: NORMAL ACCOMODATION - ENT Exam ENT Exam: Mucous Membranes Moist, Normal Exam - Neck Exam Neck Exam: Full ROM, Normal Inspection. absent: Lymphadenopathy - Respiratory Exam Respiratory Exam: Clear to Ausculation Bilateral, NORMAL BREATHING PATTERN. absent: Rales, Rhonchi, Wheezes, Respiratory Distress - Cardiovascular Exam Cardiovascular Exam: REGULAR RHYTHM, RRR, +S1, +S2. absent: Murmur - GI/Abdominal Exam GI & Abdominal Exam: Soft, Normal Bowel Sounds. absent: Distended, Firm, Guarding, Tenderness - Exam Exam: absent: Bladder Distension - Extremities Exam Extremities Exam: Normal Capillary Refill. absent: Calf Tenderness, Pedal Edema - Neurological Exam Neurological Exam: Alert, Awake, Normal Gait - Psychiatric Exam Psychiatric exam: Normal Affect, Normal Mood - Skin Skin Exam: Dry, Intact, Normal Color, Warm Assessment and Plan - Assessment and Plan (Free Text) Assessment: 40 yo AA F with PMH of alcohol and substance abuse, and pancreatitis who presents with complaint of intermittent sharp abdominal pain found to have pancreatitis. After pancreatitis resolved, patient began to have severe withdrawals from alcohol and became disoriented. Plan: 1. Acute Pancreatitis-Resolved -lipase trended downwards, with latest at 793 -discontinued IVF -continue morphine 2mg q4h for pain control -continue zofran PRN for N/V -tolerating regular PO intake -GI consulted and following, appreciate all recommendations 2. Alcohol Withdrawal -patient required 1-on-1 and eventually physical restraints on 10/03 due to agitation and violent behavior -physical restraints removed 10/04; will continue to assess need for restraints during hospital stay -most recent CIWA score is 7 -continue librium 50mg Q6H [facility]RLENE and librium 50mg Q4H PRN, per psych, for symptoms of alcohol withdrawal; will taper when clinically appropriate -continue ativan to 4mg PO q3h PRN for symptoms of alcohol withdrawal -continue folic acid, thiamine, and multivitamin -IM Geodon PRN for agitation -will continue to monitor with Q4H CIWA assessments/scores -psych consulted, all recommendations appreciated -patient amenable to psychiatric care unit transfer and medicine team expressed this interest to psych team, will await transfer evaluation for further treatment management 3. UTI -urine cultures grew klebsiella -started nitrofurantoin 100mg PO q12h (day 3) -afebrile with no leukocytosis at this time 4. Hypophosphatemia-Resolved -Phosphorus at 3.2 today -continue neutraphos 2 pkt PO daily -will continue to trend phosphorous 5. Hypokalemia-resolved -K+ at 3.7 today -will monitor with daily CMP 6. Hypomagnesemia-resolved -Mg at 1.9 today -continue MagOx 400mg PO BID -will continue to trend Mg 7. GI/DVT Prophylaxis -Protonix/physical activity Patient seen and case discussed with attending, Dr. Sunny Davis. <Sunny Davis - Last Filed: 10/07/16 16:19> Objective - Vital Signs/Intake and Output Vital Signs (last 24 hours): Temp Pulse Resp BP Pulse Ox 98.7 F 93 H 20 109/77 100 10/07/16 15:53 10/07/16 15:53 10/07/16 15:53 10/07/16 15:53 10/07/16 15:53 Intake and Output: 10/07/16 10/07/16 06:59 18:59 Intake Total 420 Balance 420 - Medications Medications: Current Medications Chlordiazepoxide (Librium) 50 mg PO Q4H PRN; Protocol PRN Reason: Agitation Last Admin: 10/04/16 14:00 Dose: 50 mg Chlordiazepoxide (Librium) 25 mg PO Q8 PRN; Protocol PRN Reason: Symptoms of alcohol withdrawl Diphenhydramine HCl (Benadryl) 50 mg PO HS PRN PRN Reason: Insomnia Last Admin: 10/06/16 23:35 Dose: 50 mg Folic Acid (Folic Acid) 1 mg PO DAILY [facility] Last Admin: 10/07/16 10:53 Dose: 1 mg Lactated Ringer's (Lactated Ringer's) 1,000 mls @ 150 mls/hr IV .Q6H40M [facility] Last Admin: 10/06/16 02:36 Dose: Not Given Lorazepam (Ativan) 4 mg PO Q6 [facility] PRN Reason: Protocol Last Admin: 10/07/16 13:26 Dose: 4 mg Magnesium Oxide (Mag-Ox) 400 mg PO BID [facility] Last Admin: 10/07/16 10:53 Dose: 400 mg Multivitamins/Minerals (Therapeutic-M Tab) 1 tab PO 0800 [facility] Last Admin: 10/07/16 10:53 Dose: 1 tab Nitrofurantoin Macrocrystals (Macrobid) 100 mg PO Q12 [facility] Stop: 10/10/16 22:01 Last Admin: 10/07/16 10:53 Dose: 100 mg Ondansetron HCl (Zofran Inj) 4 mg IVP Q6H PRN PRN Reason: Nausea/Vomiting Last Admin: 10/02/16 20:09 Dose: 4 mg Pantoprazole Sodium (Protonix Ec Tab) 40 mg PO 0600,1800 [facility] Last Admin: 10/07/16 06:43 Dose: 40 mg Potassium Phos/Sodium Phos (Neutra-Phos) 2 pkt PO DAILY [facility] Last Admin: 10/07/16 10:54 Dose: 2 pkt Thiamine HCl (Vitamin B1 Inj) 100 mg IM DAILY [facility] Last Admin: 10/07/16 14:27 Dose: 100 mg Ziprasidone (Geodon Cap) 20 mg PO Q6H PRN; Protocol PRN Reason: Agitation Last Admin: 10/05/16 23:28 Dose: 20 mg - Labs Labs: 10/07/16 09:17 10/07/16 09:17 Attending/Attestation - Attestation I have personally seen and examined this patient.: Yes I have fully participated in the care of the patient.: Yes I have reviewed all pertinent clinical information, including history, physical exam and plan: Yes Notes (Text): I have seen and examined the patient at bedside. Agree with the above note with the following additions/ exceptions: Briefly this is 40 year old female with history of alcohol and drug abuse who was admitted with recurrent pancreatitis secondary to alcohol abuse. Patient does not appear to be in any distress. Able to eat without any problem. Pancreatitis has resolved. She remains disoriented and appear calm. Continue librium and Ativan. DC geodon. Patient has UTI and is on macrobid. She has thrombocytopenia most likely due to BM suppression due to alcohol abuse. Hypomagnesemia and hypophosphatemia was replaced. Psych consult appreciated. Upon discharge patient will follow up in [facility] clinic. Dr Sunny Davis
[2016-10-07] MEDS: Pantoprazole 40 mg EC Tab PO SCH ×2 (06:43→17:42)
[2016-10-07 09:20] LABS: BASO # 0.03 K/mm3 (0.0-2.0); BASO % 0.6 % (0.0-3.0); EOS # 0.1 (0.0-0.7); EOS % 2.2 % (1.5-5.0); GRAN # 3.03 (1.4-6.5); GRAN % 56.3 % (50.0-68.0); HEMATOCRIT 30.4 % (36.0-48.0); LYMPH # 1.4 (1.2-3.4); LYMPH % 26.6 % (22.0-35.0); MEAN CORPUSCULAR HEMOGLOBIN 25.8 pg (25.0-35.0); MEAN CORPUSCULAR HGB CONC 33.9 g/dl (31.0-37.0); MEAN PLATELET VOLUME 8.4 fl (7.0-11.0); MONO # 0.8 (0.1-0.6); MONO % 14.3 % (1.0-6.0); RED CELL DISTRIBUTION WIDTH 19.1 % (11.5-14.5); WHITE BLOOD COUNT 5.4 10^3/ul (4.5-11.0)
[2016-10-07 09:29] LABS: ALB/GLOB RATIO 1.2 (1.1-1.8); ALKALINE PHOSPHATASE 85 U/L (38-133); ALT/SGPT 67 U/L (7-56); AST/SGOT 78 U/L (15-39); BILIRUBIN,TOTAL 0.2 mg/dL (0.2-1.3); BLOOD UREA NITROGEN 9 mg/dL (7-21); CALCIUM 9.4 mg/dL (8.4-10.5); CARBON DIOXIDE 25 mmol/L (21-33); CHLORIDE 100 mmol/L (98-107); GFR AFRICAN-AMERICAN > 60; GLUCOSE,RANDOM 129 mg/dL (70-110); POTASSIUM 4.4 mmol/L (3.6-5.0); SODIUM 136 mmol/L (132-148); TOTAL PROTEIN 7.4 g/dL (5.8-8.3)
--- NOTE | 2016-10-07 10:14 | CP.PCM.PN ---
<YANET BRITO - Last Filed: 10/07/16 10:07> Subjective - Date & Time of Evaluation Date of Evaluation: 10/07/16 Time of Evaluation: 10:07 - Subjective Subjective: MEDICINE PROGRESS NOTE: Pt seen and assessed at bedside. Pt has no new complaints at this time. Pt denies headache, dizziness, fever, chest pain, shortness of breath, N/V, diarrhea, or any urinary symptoms. Objective - Vital Signs/Intake and Output Vital Signs (last 24 hours): Temp Pulse Resp BP Pulse Ox 98.1 F 83 18 97/63 L 96 10/07/16 08:21 10/07/16 08:21 10/07/16 08:21 10/07/16 08:21 10/07/16 08:21 Intake and Output: 10/07/16 10/07/16 06:59 18:59 Intake Total 420 Balance 420 - Medications Medications: Current Medications Chlordiazepoxide (Librium) 50 mg PO Q4H PRN; Protocol PRN Reason: Agitation Last Admin: 10/04/16 14:00 Dose: 50 mg Chlordiazepoxide (Librium) 25 mg PO Q8 PRN; Protocol PRN Reason: Symptoms of alcohol withdrawl Diphenhydramine HCl (Benadryl) 50 mg PO HS PRN PRN Reason: Insomnia Last Admin: 10/06/16 23:35 Dose: 50 mg Folic Acid (Folic Acid) 1 mg PO DAILY [facility] [place] Last Admin: 10/06/16 10:20 Dose: 1 mg Lactated Ringer's (Lactated Ringer's) 1,000 mls @ 150 mls/hr IV .Q6H40M [facility] [place] Last Admin: 10/06/16 02:36 Dose: Not Given Lorazepam (Ativan) 4 mg PO Q3 PRN; Protocol PRN Reason: Agitation Last Admin: 10/06/16 21:01 Dose: 4 mg Magnesium Oxide (Mag-Ox) 400 mg PO BID [facility] [place] Last Admin: 10/06/16 18:16 Dose: 400 mg Multivitamins/Minerals (Therapeutic-M Tab) 1 tab PO 0800 [facility] [place] Last Admin: 10/06/16 08:20 Dose: 1 tab Nitrofurantoin Macrocrystals (Macrobid) 100 mg PO Q12 [facility] [place] Stop: 10/10/16 22:01 Last Admin: 10/06/16 21:01 Dose: 100 mg Ondansetron HCl (Zofran Inj) 4 mg IVP Q6H PRN PRN Reason: Nausea/Vomiting Last Admin: 10/02/16 20:09 Dose: 4 mg Pantoprazole Sodium (Protonix Ec Tab) 40 mg PO 0600,1800 [facility] [place] Last Admin: 10/07/16 06:43 Dose: 40 mg Potassium Phos/Sodium Phos (Neutra-Phos) 2 pkt PO DAILY [facility] [place] Last Admin: 10/05/16 09:33 Dose: 2 pkt Thiamine HCl (Vitamin B1 Inj) 100 mg IM DAILY [facility] [place] Last Admin: 10/06/16 10:21 Dose: 100 mg Ziprasidone (Geodon Cap) 20 mg PO Q6H PRN; Protocol PRN Reason: Agitation Last Admin: 10/05/16 23:28 Dose: 20 mg - Labs Labs: 10/07/16 09:17 10/07/16 09:17 - Constitutional Appears: Non-toxic, No Acute Distress - Head Exam Head Exam: ATRAUMATIC, NORMOCEPHALIC - Eye Exam Eye Exam: EOMI, Normal appearance, PERRL - ENT Exam ENT Exam: Mucous Membranes Moist, Normal Exam - Neck Exam Neck Exam: Full ROM, Normal Inspection. absent: Lymphadenopathy - Respiratory Exam Respiratory Exam: Clear to Ausculation Bilateral, NORMAL BREATHING PATTERN. absent: Rales, Rhonchi, Wheezes, Respiratory Distress - Cardiovascular Exam Cardiovascular Exam: REGULAR RHYTHM, +S1, +S2. absent: Tachycardia, Murmur - GI/Abdominal Exam GI & Abdominal Exam: Soft, Normal Bowel Sounds. absent: Distended, Firm, Guarding, Tenderness - Exam Exam: absent: Bladder Distension - Extremities Exam Extremities Exam: Normal Capillary Refill. absent: Calf Tenderness, Pedal Edema - Back Exam Back Exam: absent: CVA tenderness (L), CVA tenderness (R) - Neurological Exam Neurological Exam: Alert, Awake - Psychiatric Exam Psychiatric exam: Normal Affect, Normal Mood - Skin Skin Exam: Dry, Intact, Normal Color, Warm Assessment and Plan - Assessment and Plan (Free Text) Assessment: 40 yo AA F with PMH of alcohol and substance abuse, and pancreatitis who presents with complaint of intermittent sharp abdominal pain found to have pancreatitis. After pancreatitis resolved, patient began to have severe withdrawals from alcohol and became disoriented. Plan: 1. Acute Pancreatitis-Resolved -lipase trended downwards, with latest at 793 -discontinued IVF -continue morphine 2mg q4h for pain control -continue zofran PRN for N/V -tolerating regular PO intake -GI consulted and following, appreciate all recommendations 2. Alcohol Withdrawal -most recent CIWA score is 0 -tapered librium down to 25mg Q8H; will continue to taper as clinically appropriate -decreased ativan to 4mg PO q6h PRN for symptoms of alcohol withdrawal -continue folic acid, thiamine, and multivitamin -discontinued Geodon PRN for agitation -will continue to monitor with Q4H CIWA assessments/scores -psych consulted, all recommendations appreciated 3. UTI -urine cultures grew klebsiella -started nitrofurantoin 100mg PO q12h (day 4) -afebrile with no leukocytosis at this time 4. Hypophosphatemia-Resolved -continue neutraphos 2 pkt PO daily -will continue to trend phosphorous 5. Hypomagnesemia-resolved -continue MagOx 400mg PO BID -will continue to trend Mg 6. Hypokalemia-resolved -will monitor with daily CMP 7. GI/DVT Prophylaxis -Protonix/physical activity Patient seen and case discussed with attending, Dr. Sunny Davis. <Sunny Davis - Last Filed: 10/07/16 16:22> Objective - Vital Signs/Intake and Output Vital Signs (last 24 hours): Temp Pulse Resp BP Pulse Ox 98.7 F 93 H 20 109/77 100 10/07/16 15:53 10/07/16 15:53 10/07/16 15:53 10/07/16 15:53 10/07/16 15:53 Intake and Output: 10/07/16 10/07/16 06:59 18:59 Intake Total 420 Balance 420 - Medications Medications: Current Medications Chlordiazepoxide (Librium) 50 mg PO Q4H PRN; Protocol PRN Reason: Agitation Last Admin: 10/04/16 14:00 Dose: 50 mg Chlordiazepoxide (Librium) 25 mg PO Q8 PRN; Protocol PRN Reason: Symptoms of alcohol withdrawl Diphenhydramine HCl (Benadryl) 50 mg PO HS PRN PRN Reason: Insomnia Last Admin: 10/06/16 23:35 Dose: 50 mg Folic Acid (Folic Acid) 1 mg PO DAILY [facility] [place] Last Admin: 10/07/16 10:53 Dose: 1 mg Lactated Ringer's (Lactated Ringer's) 1,000 mls @ 150 mls/hr IV .Q6H40M [facility] [place] Last Admin: 10/06/16 02:36 Dose: Not Given Lorazepam (Ativan) 4 mg PO Q6 [place] PRN Reason: Protocol Last Admin: 10/07/16 13:26 Dose: 4 mg Magnesium Oxide (Mag-Ox) 400 mg PO BID [facility] [place] Last Admin: 10/07/16 10:53 Dose: 400 mg Multivitamins/Minerals (Therapeutic-M Tab) 1 tab PO 0800 [facility] [place] Last Admin: 10/07/16 10:53 Dose: 1 tab Nitrofurantoin Macrocrystals (Macrobid) 100 mg PO Q12 [facility] [place] Stop: 10/10/16 22:01 Last Admin: 10/07/16 10:53 Dose: 100 mg Ondansetron HCl (Zofran Inj) 4 mg IVP Q6H PRN PRN Reason: Nausea/Vomiting Last Admin: 10/02/16 20:09 Dose: 4 mg Pantoprazole Sodium (Protonix Ec Tab) 40 mg PO 0600,1800 [facility] [place] Last Admin: 10/07/16 06:43 Dose: 40 mg Potassium Phos/Sodium Phos (Neutra-Phos) 2 pkt PO DAILY [facility] [place] Last Admin: 10/07/16 10:54 Dose: 2 pkt Thiamine HCl (Vitamin B1 Inj) 100 mg IM DAILY [facility] [place] Last Admin: 10/07/16 14:27 Dose: 100 mg Ziprasidone (Geodon Cap) 20 mg PO Q6H PRN; Protocol PRN Reason: Agitation Last Admin: 10/05/16 23:28 Dose: 20 mg - Labs Labs: 10/07/16 09:17 10/07/16 09:17 Attending/Attestation - Attestation I have personally seen and examined this patient.: Yes I have fully participated in the care of the patient.: Yes I have reviewed all pertinent clinical information, including history, physical exam and plan: Yes Notes (Text): I have seen and examined the patient at bedside. Agree with the above note with the following additions/ exceptions: Briefly this is 40 year old female with history of alcohol and drug abuse who was admitted with recurrent pancreatitis secondary to alcohol abuse. Patient does not appear to be in any distress. Able to eat without any problem. Pancreatitis has resolved. She has slept thru the night. There was no disruptive event. Will taper librium and Ativan. TAMAR dao. Patient has UTI and is on macrobid. She has thrombocytopenia most likely due to BM suppression due to alcohol abuse. Hypomagnesemia and hypophosphatemia was replaced. Patient is willing to go to psych unit. Awaiting psych follow up. Upon discharge patient will follow up in [facility] clinic. Dr Sunny Davis
[2016-10-07] MEDS: Multivitamin With Minerals Tab PO SCH (10:53)
[2016-10-07] MEDS: Magnesium Oxide 400 mg Tab UD PO SCH ×2 (10:53→17:42)
[2016-10-07] MEDS: Potassium & Sodium Phosphate PO SCH (10:54)
[2016-10-07] MEDS: Thiamine 100 mg/ml Inj IM SCH (14:27)
[2016-10-07 15:54] VITALS: BP 109/77; PULSE 93; RESP 20; TEMP 98.7; O2SAT 100
[2016-10-08 06:54] LABS: ALB/GLOB RATIO 1.1 (1.1-1.8); ALKALINE PHOSPHATASE 76 U/L (38-133); ALT/SGPT 62 U/L (7-56); AST/SGOT 63 U/L (15-39); BILIRUBIN,TOTAL 0.3 mg/dL (0.2-1.3); BLOOD UREA NITROGEN 10 mg/dL (7-21); CALCIUM 9.3 mg/dL (8.4-10.5); CARBON DIOXIDE 27 mmol/L (21-33); CHLORIDE 101 mmol/L (95-110); GFR AFRICAN-AMERICAN > 60; GLUCOSE,RANDOM 91 mg/dL (70-110); POTASSIUM 4.5 mmol/L (3.6-5.0); SODIUM 137 mmol/L (132-148); TOTAL PROTEIN 6.8 g/dL (5.8-8.3)
[2016-10-08 07:06] LABS: BASO # 0.04 K/mm3 (0.0-2.0); BASO % 0.8 % (0.0-3.0); EOS # 0.1 (0.0-0.7); EOS % 2.4 % (1.5-5.0); GRAN # 2.39 (1.4-6.5); HEMATOCRIT 28.7 % (36.0-48.0); LYMPH # 1.5 (1.2-3.4); LYMPH % 30.5 % (22.0-35.0); MEAN CELL VOLUME 75.7 fl (80.0-105.0); MEAN CORPUSCULAR HEMOGLOBIN 25.3 pg (25.0-35.0); MEAN CORPUSCULAR HGB CONC 33.4 g/dl (31.0-37.0); MEAN PLATELET VOLUME 8.7 fl (7.0-11.0); MONO # 0.9 (0.1-0.6); MONO % 18.3 % (1.0-6.0)
[2016-10-08] MEDS ORDERED: Pantoprazole 40 mg EC Tab PO SCH (10:00)
[2016-10-08] MEDS: Magnesium Oxide 400 mg Tab UD PO SCH (10:11)
[2016-10-08] MEDS: Thiamine 100 mg/ml Inj IM SCH (10:11)
[2016-10-08] MEDS: Multivitamin With Minerals Tab PO SCH (10:11)
--- NOTE | 2016-10-08 11:06 | CON ---
DATE: 09/30/2016 HISTORY OF PRESENT ILLNESS: The patient is a 40-year-old female who was treated on the medical floor for recurrent pancreatitis secondary to alcohol abuse as well as concurrent UTI. The patient demonstrated periods of disorientation, bizarre behavior, hallucinations, and verbal aggression for which Dr. Mora was consulted for. I reviewed Dr. Mora's consult note dated October 04, 2016. This provider was requested to follow up with patient due to her reported willingness to sign into Psychiatric Unit. I met with patient at bedside today and patient is alert and oriented to location, month, and year. She is aware of the circumstances of her hospitalization and she confirms that she is willing to sign into the Psychiatric Unit. Regarding her symptoms, the patient does admits to having "a lot of anxiety" and some depression. She denies having any prior psychiatric treatment and admits to alcohol dependency approximately three to four days a week. Presently, she is denying alcohol withdrawal symptoms including hallucination and appears that her initial bizarre behavior has improved last few days treatment with benzos. The patient is not aggressive since she is in a common unit, which she confirms by staff notes as well. Delusions, which were discovered by Dr. Mora seem to have also resolved. The patient does not refer to herself as Dr. Davenport any longer. She is fairly responsive to my questioning, however, her responses are brief and they appear interesting gauged to some degree. As noted above, she is not bizarre, but it is a little hardly related and does exhibit some remainders of thought blocking, as described by Dr. Mora. I think some mild confusion also persist. Nonetheless, she is not overtly disorganized at this time and would definitely benefit from inpatient monitoring. PSYCHIATRIC MEDICATIONS: Psychiatric medications include Ativan 2 mg q. 8. and Librium 10 mg q. 8 p.r.n. VITAL SIGNS: Reviewed by this provider. LABS: Reviewed by this provider. IMPRESSION: Mood disorder, not otherwise specified; anxiety disorder, not otherwise specified; rule out generalized anxiety disorder; alcohol use disorder ,severe; resolving delirium; rule out substance induced mood disorder; and rule out substance induced psychotic disorder. RECOMMENDATIONS: The patient is agreeable to sign involuntarily to Psychiatric Unit III depression and anxiety and may be transferred to once she is medically clear. At this time, continue with recurrent treatment with Ativan and Librium. We will start Paxil 10 mg at bedtime to treat her anxiety and depression. Psychiatry will continue to follow until she is transferred. Nataly Santoro MD
--- NOTE | 2016-10-08 14:55 | CP.PCM.DIS ---
<YANET BRITO - Last Filed: 10/08/16 14:42> Provider - Provider Date of Admission: 09/30/16 22:05 Attending physician: Sunny Davis MD Primary care physician: None Consults: None Time Spent in preparation of Discharge (in minutes): 49 Hospital Course - Lab Results Lab Results: Micro Results 10/01/16 Unknown Urine,Clean Catch Urine Culture - Final Klebsiella Pneumoniae Ssp Pneu Most Recent Lab Values WBC 5.0 10^3/ul (4.5-11.0) 10/08/16 06:00 RBC 3.79 10^6/uL (3.5-6.1) 10/08/16 06:00 Hgb 9.6 g/dL (12.0-16.0) L 10/08/16 06:00 Hct 28.7 % (36.0-48.0) L 10/08/16 06:00 MCV 75.7 fl (80.0-105.0) L 10/08/16 06:00 MCH 25.3 pg (25.0-35.0) 10/08/16 06:00 MCHC 33.4 g/dl (31.0-37.0) 10/08/16 06:00 RDW 19.0 % (11.5-14.5) H 10/08/16 06:00 Plt Count 300 10^3/uL (120.0-450.0) 10/08/16 06:00 MPV 8.7 fl (7.0-11.0) 10/08/16 06:00 Gran % 48.0 % (50.0-68.0) L 10/08/16 06:00 Lymph % (Auto) 30.5 % (22.0-35.0) 10/08/16 06:00 Motley % (Auto) 18.3 % (1.0-6.0) H 10/08/16 06:00 Eos % (Auto) 2.4 % (1.5-5.0) 10/08/16 06:00 Baso % (Auto) 0.8 % (0.0-3.0) 10/08/16 06:00 Gran # 2.39 (1.4-6.5) 10/08/16 06:00 Lymph # 1.5 (1.2-3.4) 10/08/16 06:00 Motley # 0.9 (0.1-0.6) H 10/08/16 06:00 Eos # 0.1 (0.0-0.7) 10/08/16 06:00 Baso # 0.04 K/mm3 (0.0-2.0) 10/08/16 06:00 Sodium 137 mmol/L (132-148) 10/08/16 06:00 Potassium 4.5 mmol/L (3.6-5.0) 10/08/16 06:00 Chloride 101 mmol/L (95-110) 10/08/16 06:00 Carbon Dioxide 27 mmol/L (21-33) 10/08/16 06:00 Anion Gap 14 (10-20) 10/08/16 06:00 BUN 10 mg/dL (7-21) 10/08/16 06:00 Creatinine 0.7 mg/dL (0.5-1.4) 10/08/16 06:00 Est GFR ( Amer) > 60 10/08/16 06:00 Est GFR (Non-Af Amer) > 60 10/08/16 06:00 Random Glucose 91 mg/dL (70-110) 10/08/16 06:00 Calcium 9.3 mg/dL (8.4-10.5) 10/08/16 06:00 Phosphorus 3.2 mg/dL (2.5-4.5) 10/06/16 07:00 Magnesium 1.9 mg/dL (1.7-2.2) 10/06/16 07:00 Total Bilirubin 0.3 mg/dL (0.2-1.3) 10/08/16 06:00 AST 63 U/L (15-39) H 10/08/16 06:00 ALT 62 U/L (7-56) H 10/08/16 06:00 Alkaline Phosphatase 76 U/L (38-133) 10/08/16 06:00 Lactate Dehydrogenase 817 U/L (333-699) H 09/30/16 21:20 Total Creatine Kinase 145 U/L (35-230) 09/30/16 21:20 Troponin I < 0.01 ng/mL 10/01/16 16:51 Total Protein 6.8 g/dL (5.8-8.3) 10/08/16 06:00 Albumin 3.6 g/dL (3.0-4.8) 10/08/16 06:00 Globulin 3.2 gm/dL 10/08/16 06:00 Albumin/Globulin Ratio 1.1 (1.1-1.8) 10/08/16 06:00 Lipase 793 U/L (23-300) H 10/04/16 06:15 Free T4 1.42 ng/dL (0.78-2.19) 10/03/16 10:09 TSH 3rd Generation 2.44 mIU/mL (0.46-4.68) 10/03/16 10:09 Beta HCG, Quant < 2.39 mIU/mL (0-6.15) 10/01/16 00:45 Urine Color Yellow (YELLOW) 09/30/16 22:00 Urine Appearance Clear (CLEAR) 09/30/16 22:00 Urine pH 7.5 (4.7-8.0) 09/30/16 22:00 Ur Specific [place] 1.020 (1.005-1.035) 09/30/16 22:00 Urine Protein 100 mg/dL (<30 mg/dL) H 09/30/16 22:00 Urine Glucose (UA) Negative mg/dL (NEGATIVE) 09/30/16 22:00 Urine Ketones >=80 mg/dL (NEGATIVE) 09/30/16 22:00 Urine Blood Negative (NEGATIVE) 09/30/16 22:00 Urine Nitrate Negative (NEGATIVE) 09/30/16 22:00 Urine Bilirubin Moderate (NEGATIVE) H 09/30/16 22:00 Urine Urobilinogen 1.0 E.U./dL (<1 E.U./dL) H 09/30/16 22:00 Ur Leukocyte Esterase Trace Kevin/uL (NEGATIVE) H 09/30/16 22:00 Urine RBC 1 - 3 /hpf (0-2) 09/30/16 22:00 Urine WBC 1 - 3 /hpf (0-6) 09/30/16 22:00 Ur Epithelial Cells 3 - 4 /hpf (0-5) 09/30/16 22:00 Urine Bacteria Rare (NEG) 09/30/16 22:00 Urine HCG, Qual Negative (NEGATIVE) 09/30/16 22:00 Urine Opiates Screen Positive (NEGATIVE) H 10/01/16 04:00 Urine Methadone Screen Negative (NEGATIVE) 10/01/16 04:00 Ur Barbiturates Screen Negative (NEGATIVE) 10/01/16 04:00 Ur Phencyclidine Scrn Negative (NEGATIVE) 10/01/16 04:00 Ur Amphetamines Screen Negative (NEGATIVE) 10/01/16 04:00 U Benzodiazepines Scrn Negative (NEGATIVE) 10/01/16 04:00 U Oth Cocaine Metabols Positive (NEGATIVE) H 10/01/16 04:00 U Cannabinoids Screen Positive (NEGATIVE) H 10/01/16 04:00 Alcohol, Quantitative < 10 mg/dL (0-10) 09/30/16 22:00 RPR Nonreactive (NONREACTIVE) 10/03/16 12:48 Hepatitis A IgM Ab Negative (NEGATIVE) 10/01/16 00:00 Hep Bs Antigen Negative (NEGATIVE) 10/01/16 00:00 Hep B Core IgM Ab Negative (NEGATIVE) 10/01/16 00:00 Hepatitis C Antibody Negative (NEGATIVE) 10/01/16 00:00 - Hospital Course Hospital Course: 40 year old female with a past medical history significant for alcohol abuse, substance abuse, and pancreatitis presented with complaints of intermittent sharp abdominal pain with accompanying nausea and non-bloody non-bilious emesis. Routine labwork revealed patient had a lipase elevated to 1213, transaminitis, negative troponin, and cocaine, opiates, and cannabinoids in her urine. Patient was started on LR for IV hydration at 200cc/hr, morphine for pain control and kept NPO for treatment of pancreatitis. GI was consulted. A UA and culture revealed that patient had a klebsiella UTI and patient was started on PO Nitrofurantoin. Patient was placed on PRN ativan for symptoms of alcohol withdrawal initially and displayed no signs/symptoms of alcohol withdrawal for 48 hours. Patient then began to become agitated, disoriented, and required 1-to- 1 monitoring as well as physical restraints, as patient began to display violent and threatening behavior. Patient was started on scheduled and PRN librium, had her ativan PRN order increased and placed on CIWA protocols with appropriate thiamine, folic acid and MV supplementation. Patient was advanced on her diet as she tolerated it, had her lipase trended until it was WNL and had her ativan and libruim tapered as it became clinically appropriate to do so. Her IV fluid hydration was stopped when her pancreatitis became clinically stable. Patient progressively become more oriented over the course of 72 hours. During her admission, she had hypomagnesemia, hypokalemia and hypophosphatemia with replenishment as needed based on daily labwork. Psych was consulted and recommended that patient be treated as an inpatient in the psychiatric unit at [facility]. Once patient was medically stable, she was discharged to the psychiatric unit on 10/08. - Date & Time of H&P Date of H&P: 10/01/16 Time of H&P: 07:52 Discharge Exam - Head Exam Head Exam: ATRAUMATIC, NORMOCEPHALIC - Eye Exam Eye Exam: EOMI, Normal appearance, PERRL - ENT Exam ENT Exam: Mucous Membranes Moist, Normal Exam - Neck Exam Neck exam: Full Rom, Normal Inspection - Respiratory Exam Respiratory Exam: NORMAL BREATHING PATTERN, UNREMARKABLE. absent: Rales, Rhonchi, Wheezes, Respiratory Distress - Cardiovascular Exam Cardiovascular Exam: REGULAR RHYTHM, +S1, +S2. absent: Tachycardia, Diastolic murmur, Systolic Murmur - GI/Abdominal Exam GI & Abdominal Exam: Normal Bowel Sounds, Soft, Unremarkable. absent: Distended , Firm, Guarding, Tenderness - Exam Exam: absent: Bladder Distension - Extremities Exam Extremities exam: normal capillary refill, normal inspection, pedal pulses present - Back Exam Back exam: absent: CVA tenderness (L), CVA tenderness (R) - Neurological Exam Neurological exam: Alert, Normal Gait, Oriented x3 - Psychiatric Exam Psychiatric exam: Normal Affect, Normal Mood - Skin Skin Exam: Dry, Intact, Normal Color, Warm Discharge Plan - Follow Up Plan Condition: STABLE Disposition: DISCHARGE TO PSYCH HOSPITAL Instructions: Pancreatitis (DC), Abuse of Alcohol (DC), Alcohol Withdrawal (DC) , Alcohol Use Disorder (DC) Additional Instructions: Patient being discharged to psychiatric unit. Please continue all medications as ordered. Referrals: [facility], [Non-Staff] - Follow up with primary Tristan Delgado MD [Staff Provider] - Cristian Mora MD [Staff Provider] - <Sunny Davis - Last Filed: 10/08/16 15:04> Provider - Provider Date of Admission: 09/30/16 22:05 Attending physician: Snuny Davis MD Hospital Course - Lab Results Lab Results: Micro Results 10/01/16 Unknown Urine,Clean Catch Urine Culture - Final Klebsiella Pneumoniae Ssp Pneu Most Recent Lab Values WBC 5.0 10^3/ul (4.5-11.0) 10/08/16 06:00 RBC 3.79 10^6/uL (3.5-6.1) 10/08/16 06:00 Hgb 9.6 g/dL (12.0-16.0) L 10/08/16 06:00 Hct 28.7 % (36.0-48.0) L 10/08/16 06:00 MCV 75.7 fl (80.0-105.0) L 10/08/16 06:00 MCH 25.3 pg (25.0-35.0) 10/08/16 06:00 MCHC 33.4 g/dl (31.0-37.0) 10/08/16 06:00 RDW 19.0 % (11.5-14.5) H 10/08/16 06:00 Plt Count 300 10^3/uL (120.0-450.0) 10/08/16 06:00 MPV 8.7 fl (7.0-11.0) 10/08/16 06:00 Gran % 48.0 % (50.0-68.0) L 10/08/16 06:00 Lymph % (Auto) 30.5 % (22.0-35.0) 10/08/16 06:00 Motley % (Auto) 18.3 % (1.0-6.0) H 10/08/16 06:00 Eos % (Auto) 2.4 % (1.5-5.0) 10/08/16 06:00 Baso % (Auto) 0.8 % (0.0-3.0) 10/08/16 06:00 Gran # 2.39 (1.4-6.5) 10/08/16 06:00 Lymph # 1.5 (1.2-3.4) 10/08/16 06:00 Motley # 0.9 (0.1-0.6) H 10/08/16 06:00 Eos # 0.1 (0.0-0.7) 10/08/16 06:00 Baso # 0.04 K/mm3 (0.0-2.0) 10/08/16 06:00 Sodium 137 mmol/L (132-148) 10/08/16 06:00 Potassium 4.5 mmol/L (3.6-5.0) 10/08/16 06:00 Chloride 101 mmol/L (95-110) 10/08/16 06:00 Carbon Dioxide 27 mmol/L (21-33) 10/08/16 06:00 Anion Gap 14 (10-20) 10/08/16 06:00 BUN 10 mg/dL (7-21) 10/08/16 06:00 Creatinine 0.7 mg/dL (0.5-1.4) 10/08/16 06:00 Est GFR ( Amer) > 60 10/08/16 06:00 Est GFR (Non-Af Amer) > 60 10/08/16 06:00 Random Glucose 91 mg/dL (70-110) 10/08/16 06:00 Calcium 9.3 mg/dL (8.4-10.5) 10/08/16 06:00 Phosphorus 3.2 mg/dL (2.5-4.5) 10/06/16 07:00 Magnesium 1.9 mg/dL (1.7-2.2) 10/06/16 07:00 Total Bilirubin 0.3 mg/dL (0.2-1.3) 10/08/16 06:00 AST 63 U/L (15-39) H 10/08/16 06:00 ALT 62 U/L (7-56) H 10/08/16 06:00 Alkaline Phosphatase 76 U/L (38-133) 10/08/16 06:00 Lactate Dehydrogenase 817 U/L (333-699) H 09/30/16 21:20 Total Creatine Kinase 145 U/L (35-230) 09/30/16 21:20 Troponin I < 0.01 ng/mL 10/01/16 16:51 Total Protein 6.8 g/dL (5.8-8.3) 10/08/16 06:00 Albumin 3.6 g/dL (3.0-4.8) 10/08/16 06:00 Globulin 3.2 gm/dL 10/08/16 06:00 Albumin/Globulin Ratio 1.1 (1.1-1.8) 10/08/16 06:00 Lipase 793 U/L (23-300) H 10/04/16 06:15 Free T4 1.42 ng/dL (0.78-2.19) 10/03/16 10:09 TSH 3rd Generation 2.44 mIU/mL (0.46-4.68) 10/03/16 10:09 Beta HCG, Quant < 2.39 mIU/mL (0-6.15) 10/01/16 00:45 Urine Color Yellow (YELLOW) 09/30/16 22:00 Urine Appearance Clear (CLEAR) 09/30/16 22:00 Urine pH 7.5 (4.7-8.0) 09/30/16 22:00 Ur Specific [place] 1.020 (1.005-1.035) 09/30/16 22:00 Urine Protein 100 mg/dL (<30 mg/dL) H 09/30/16 22:00 Urine Glucose (UA) Negative mg/dL (NEGATIVE) 09/30/16 22:00 Urine Ketones >=80 mg/dL (NEGATIVE) 09/30/16 22:00 Urine Blood Negative (NEGATIVE) 09/30/16 22:00 Urine Nitrate Negative (NEGATIVE) 09/30/16 22:00 Urine Bilirubin Moderate (NEGATIVE) H 09/30/16 22:00 Urine Urobilinogen 1.0 E.U./dL (<1 E.U./dL) H 09/30/16 22:00 Ur Leukocyte Esterase Trace Kevin/uL (NEGATIVE) H 09/30/16 22:00 Urine RBC 1 - 3 /hpf (0-2) 09/30/16 22:00 Urine WBC 1 - 3 /hpf (0-6) 09/30/16 22:00 Ur Epithelial Cells 3 - 4 /hpf (0-5) 09/30/16 22:00 Urine Bacteria Rare (NEG) 09/30/16 22:00 Urine HCG, Qual Negative (NEGATIVE) 09/30/16 22:00 Urine Opiates Screen Positive (NEGATIVE) H 10/01/16 04:00 Urine Methadone Screen Negative (NEGATIVE) 10/01/16 04:00 Ur Barbiturates Screen Negative (NEGATIVE) 10/01/16 04:00 Ur Phencyclidine Scrn Negative (NEGATIVE) 10/01/16 04:00 Ur Amphetamines Screen Negative (NEGATIVE) 10/01/16 04:00 U Benzodiazepines Scrn Negative (NEGATIVE) 10/01/16 04:00 U Oth Cocaine Metabols Positive (NEGATIVE) H 10/01/16 04:00 U Cannabinoids Screen Positive (NEGATIVE) H 10/01/16 04:00 Alcohol, Quantitative < 10 mg/dL (0-10) 09/30/16 22:00 RPR Nonreactive (NONREACTIVE) 10/03/16 12:48 Hepatitis A IgM Ab Negative (NEGATIVE) 10/01/16 00:00 Hep Bs Antigen Negative (NEGATIVE) 10/01/16 00:00 Hep B Core IgM Ab Negative (NEGATIVE) 10/01/16 00:00 Hepatitis C Antibody Negative (NEGATIVE) 10/01/16 00:00 Attending/Attestation - Attestation I have personally seen and examined this patient.: Yes I have fully participated in the care of the patient.: Yes I have reviewed all pertinent clinical information, including history, physical exam and plan: Yes Notes (Text): I have seen and examined the patient at bedside. Agree with the above note with the following additions/ exceptions: Briefly this is 40 year old female with history of alcohol and drug abuse who was admitted with recurrent pancreatitis secondary to alcohol abuse. Patient does not appear to be in any distress. Able to eat without any problem. Pancreatitis has resolved. She has slept thru the night. There was no disruptive event. She is alert and oriented x3. Will taper librium and Ativan. DC geodon. Patient has UTI and is on macrobid. She has thrombocytopenia most likely due to BM suppression due to alcohol abuse. Patient is accepted in psych unit. We will continue to follow the patient in psych. Upon discharge patient will follow up in [facility] clinic. Dr Sunny Davis
== END 2016-10-08 13:08 | DRG 204 ==
LOC: ED 20:31 → ERH 22:05 → 2RNO 10-01 00:12 → 5RSO 10-02 13:19
PROVIDERS: ADMIT Internal Medicine; ATTEND Hospitalist
DX: K85.20 Alcohol induced acute pancreatitis without necrosis or infection (principal); D69.6 Thrombocytopenia, unspecified; E83.39 Other disorders of phosphorus metabolism; E83.42 Hypomagnesemia; Z78.1 Physical restraint status; N39.0 Urinary tract infection, site not specified; F10.239 Alcohol dependence with withdrawal, unspecified; B96.1 Klebsiella pneumoniae [K. pneumoniae] as the cause of diseases classified elsewhere; F14.10 Cocaine abuse, uncomplicated; E87.6 Hypokalemia; F19.24 Other psychoactive substance dependence with psychoactive substance-induced mood disorder; K86.0 Alcohol-induced chronic pancreatitis; F22 Delusional disorders; F12.90 Cannabis use, unspecified, uncomplicated; F32.89 Other specified depressive episodes; F17.210 Nicotine dependence, cigarettes, uncomplicated; Z90.49 Acquired absence of other specified parts of digestive tract; Z91.410 Personal history of adult physical and sexual abuse; R40.2412 Glasgow coma scale score 13-15, at arrival to emergency department; F41.1 Generalized anxiety disorder

== ENCOUNTER 2016-10-08 13:13 | Inpatient (IN) | payer MEDICAID, OTHER ==
[2016-10-08] MEDS ORDERED: Magnesium Hydroxide Susp 30 ml UD PO PRN (16:48)
[2016-10-08] MEDS ORDERED: Alum-Mag Hydrox-Simethicone Susp (30 mL) PO PRN (16:49)
[2016-10-09 07:40] LABS: CHOLESTEROL 181 mg/dL (130-200); GLUCOSE,FASTING 98 mg/dL (65-110)
[2016-10-09 07:49] LABS: FREE T4 0.71 ng/dL (0.78-2.19)
[2016-10-09 08:03] LABS: THYROID STIMULATING HORMONE 1.34 mIU/mL (0.46-4.68)
[2016-10-09] MEDS: Pantoprazole 40 mg EC Tab PO SCH (08:52)
[2016-10-09] MEDS: Multivitamin With Minerals Tab PO SCH (08:52)
--- NOTE | 2016-10-09 15:16 | PCM.PSYCH ---
Initial Psychiatric Evaluation - Initial Psychiatric Evaluation Type of Admission: Voluntary Legal Status: Capacity (pt has capacity to sign consent for treatment) Chief Complaint (in patient's own words): "I felt like I was in a dungeon and saw faces that I have never seen before" Patient's Reaction to Hospitalization: pt was transferred to the psych inpt unit from med unit for eval psychotic symptoms, disorganized thoughts and behavior. History of Present Illness and Precipitating Events: shortly pt is 40yo female with not known psych h/o, pt denied, pt was transferred from the medical floor where she was admitted for pancreatitis due to alcohol use disorder, UTI, delirium stage, pt was medically stablized, pt was transferred to the psych unit for evaluation of disorganized thoughts, mood symptoms, anxiety, please see consult notes for more detailed information. (on the medical side pt was agitated,was delusional, was referring herself as , was presented to be bizarre). pt was seen at the tx team meeting, pt is very thin build, almost chahectic female, acceptable personal hygiene, good ADLs. pt presented to be disorganized in thoughts, was saying that about a week ago she seems to be placed in dungeon with "colvin stones, they placed me on the metal bed, tied my legs and arms, I saw some faces I never seen before", "I had impression that they will do some autopsy on me or something". pt was keep going and going about her experience. from description pt had most likely pt was in her delirium stage which is related to her pancreatitis, alcohol withdrawals, UTI, electrolyte disbalance. pt reported that she was feeling anxious "a little", has difficulties to fall and to stay asleep, and migraines, pt said that she was self medicating with alcohol. Pt was saying that "I am drinking a few shots here and there", pt denied h/o blackouts, h/o withdrawal symptoms, h/o detoxes or rehabs. pt denied hearing voices or seeing things, but obviously is disorganized. pt reported that she has episodes when she feels irritable and "annoyed" by her family members and "I am trying to calm down with weed, it depends, I am not using that that often, may be twice a day". past psych h/o: denied pt denied smoking medical h/o: headaches. social h/o: pt does not work, has two grown kids, . Lab Results 10/09/16 07:05: Hemoglobin A1c 5.1 10/09/16 07:05: Free T4 0.71 L, TSH 3rd Generation 1.34 10/09/16 07:05: Fasting Glucose 98, Triglycerides 82, Cholesterol 181, LDL Cholesterol Direct 99, HDL Cholesterol 53 Vital Signs Temp Pulse Resp BP Pulse Ox 10/09/16 07:00 97.5 F L 74 16 111/76 100 10/08/16 17:22 20 10/08/16 16:00 72 125/80 10/08/16 13:58 98 F 73 20 123/78 100 Current Medications: Active Medications Generic Name Dose Route Start Last Admin Trade Name Freq PRN Reason Stop Dose Admin Acetaminophen 650 mg 10/08/16 16:35 Tylenol 325mg Tab PO Q6 PRN Pain, Mild (1-3) Al Hydrox/Mg Hydrox/Simethicone 30 ml 10/08/16 16:49 Maalox Plus 30 Ml PO DAILY PRN Indigestion / Heartburn Folic Acid 1 mg 10/09/16 08:00 10/09/16 08:52 Folic Acid PO 1 mg DAILY ARLENE Administration Ibuprofen 400 mg 10/08/16 16:35 Motrin Tab PO Q6 PRN Pain, moderate (4-7) Lorazepam 2 mg 10/08/16 16:35 10/08/16 21:50 Ativan PO 2 mg Q8 PRN Administration Severe Agitation Magnesium Hydroxide 30 ml 10/08/16 16:48 Milk Of Magnesia PO DAILY PRN Constipation Multivitamins/Minerals 1 tab 10/09/16 08:00 10/09/16 08:52 Therapeutic-M Tab PO 1 tab 0800 ARLENE Administration Nitrofurantoin Macrocrystals 100 mg 10/08/16 18:00 10/09/16 06:28 Macrobid PO 100 mg Q12 ARLENE Administration Pantoprazole Sodium 40 mg 10/09/16 08:00 10/09/16 08:52 Protonix Ec Tab PO 40 mg DAILY ARLENE Administration Paroxetine HCl 10 mg 10/08/16 22:00 10/08/16 21:47 Paxil PO 10 mg HS ARLENE Administration Thiamine HCl 100 mg 10/09/16 08:00 10/09/16 08:52 Vitamin B1 Tab PO 100 mg DAILY ARLENE Administration Past Psychiatric History - Past Psychiatric History Previous Treatment History: None Prior Professional Help: see HPI Prior Psychiatric Treatment: see HPI At what hospital: see HPI Duration: see hPI Nature of Treatment: see HPI Explanation of prior treatment: see HPI History of Abuse: denied History of ETOH/Drug Use: see HPI History of Family Illness: see HPI, denied h/o mental illness, denied h/o suicidal attempts Pertinent Medical Hx (Current Medical&Sleep Prob, Allergies): Allergies Allergy/AdvReac Type Severity Reaction Status Date / Time No Known Allergies Allergy Verified 09/30/16 20:48 Folic Acid 1 mg PO DAILY tab 10/08/16 LORazepam [Ativan] 2 mg PO Q8 tab 10/08/16 Magnesium Oxide [Mag-Ox] 400 mg PO BID tab 10/08/16 Multimineral/Multivitamin [Therapeutic-M Tab] 1 tab PO 0800 tab 10/08/16 Nitrofurantoin Macrocrystals [Macrobid] 100 mg PO Q12 cap 10/08/16 Pantoprazole [Protonix EC Tab] 40 mg PO DAILY ect 10/08/16 Thiamine [Vitamin B1 Tab] 100 mg PO DAILY tab 10/08/16 chlordiazePOXIDE [Librium] 10 mg PO Q8 PRN cap 10/08/16 Review of Systems - Review of Systems Systems not reviewed;Unavailable: Acuity of Condition - EENT Eyes: As Per HPI Ears: As Per HPI Nose/Mouth/Throat: As Per HPI - Breasts Breasts: As Per HPI - Cardiovascular Cardiovascular: As Per HPI - Respiratory Respiratory: As Per HPI - Gastrointestinal Gastrointestinal: As Per HPI - Genitourinary Genitourinary: As Per HPI - Reproductive: Female Reproductive:Female: As Per HPI - Menstruation Menstruation: As Per HPI - Musculoskeletal Musculoskeletal: As Par HPI - Integumentary Integumentary: As Per HPI - Neurological Neurological: As Per HPI - Psychiatric Psychiatric: As Per HPI - Endocrine Endocrine: As Per HPI - Hematologic/Lymphatic Hematologic: As Per HPI Mental Status Examination - Personal Presentation Personal Presentation: Looks older than stated age - Affect Affect: Flat - Motor Activity Motor Activity: Calm - Reliability in Providing Information Reliability in Providing Information: Poor, due to alteration in thoughts, Poor , due to altered mood - Speech Speech: Disorganized, Tangential - Mood Mood: Depressed, Anxious - Formal Thought Process Formal Thought Process: Loosening of associations, Circumstantial - Hallucinations/Delusions Hallucinations: Visual - Obsessions/Compulsions Obsessions: None Compulsions: None - Cognitive Functions Orientation: Person, Place Sensorium: Alert Attention/Concentration: Easily distracted Abstract Thinking: Ulysses Estimate of Intelligence: Average Judgement: Intact, as evidence by: Insight regarding need for hospitalization - Risk Risk: Withdrawal, Diminished functioning - Strength & Assets Inventory Strength & Assets Inventory: Family support, Cooperative - Limitations Limitations: Other (minimizing symptoms) DSM 5 DX - DSM 5 DSM 5 Diagnosis: delirium resolving (UTI, pancreatitis, - Recommended/Plan of Treatment Treatment Recommendations and Plan of Treatment: milieu/structure/supportive therapy collaterals from family Folic Acid 1 mg PO DAILY will be continued LORazepam [Ativan] 2 mg PO Q8 will be continued Magnesium Oxide [Mag-Ox] 400 mg PO BID will be continued Multimineral/Multivitamin [Therapeutic-M Tab] 1 tab PO daily will be continued Nitrofurantoin Macrocrystals [Macrobid] 100 mg PO Q12 will be continued Pantoprazole [Protonix EC Tab] 40 mg PO DAILY will be continued Thiamine [Vitamin B1 Tab] 100 mg PO DAILY will be continued risperdal 0.25mg hs for psychosis paxil 10mg po hs will be continued SW evaluation will monitor closely Projected ELOS: 5days Prognosis: fair Discharge Plan and Discharge Criteria: Pt will be not depressed or manic, will be more hopeful, will be not psychotic or anxious, will be not having thoughts of harming self or others, will be tolerating medications well, will not have major side effects, will be able to function, will not pose threat to self or others. - Smoking Cessation Smoking Cessation Initiated: No Reason for not providing: denied
--- NOTE | 2016-10-09 16:46 | PCM.BM ---
<SladeShiraNaila Y - Last Filed: 10/09/16 16:45> - Milieu Protocol Milieu Narrative: milieu/structure/supportive therapy collaterals from family Folic Acid 1 mg PO DAILY will be continued LORazepam [Ativan] 2 mg PO Q8 will be continued Magnesium Oxide [Mag-Ox] 400 mg PO BID will be continued Multimineral/Multivitamin [Therapeutic-M Tab] 1 tab PO daily will be continued Nitrofurantoin Macrocrystals [Macrobid] 100 mg PO Q12 will be continued Pantoprazole [Protonix EC Tab] 40 mg PO DAILY will be continued Thiamine [Vitamin B1 Tab] 100 mg PO DAILY will be continued risperdal 0.25mg hs for psychosis paxil 10mg po hs will be continued SW evaluation will monitor closely Family Contact Family contact: Patient agrees to contact - Goals for Treatment Patient goals for treatment: "To get on the right medications, sleep better and not feel anxious." Discharge/Continuing Care - Education Needs Education Needs: Family Medication, Family Diagnosis/Disease Process, Family Coping Skills, Family Community resources, Family Aftercare Safety Plan, Patient Medication, Patient Diagnosis/Disease Process, Patient Coping Skills, Patient Community resources, Patient Aftercare Safety Plan - Discharge Discharge Criteria: Tolerates medication w/o severe side effects, Free of agitation, Normal sleep pattern, Ability to care for self, No longer exhibiting s/s of withdrawal, Reduction of target symptoms - Treatment Team Participation Patient/Family/SO Statement: milieu/structure/supportive therapy collaterals from family Folic Acid 1 mg PO DAILY will be continued LORazepam [Ativan] 2 mg PO Q8 will be continued Magnesium Oxide [Mag-Ox] 400 mg PO BID will be continued Multimineral/Multivitamin [Therapeutic-M Tab] 1 tab PO daily will be continued Nitrofurantoin Macrocrystals [Macrobid] 100 mg PO Q12 will be continued Pantoprazole [Protonix EC Tab] 40 mg PO DAILY will be continued Thiamine [Vitamin B1 Tab] 100 mg PO DAILY will be continued risperdal 0.25mg hs for psychosis paxil 10mg po hs will be continued SW evaluation will monitor closely <Oneida Delong - Last Filed: 10/09/16 17:01> Treatment Plan Problems - Problems identified on initial assessmt Hopelessness/Helplessness Date Initiated: 10/09/16 Time Initiated: 17:03 Assessment reference: NA Status: Active Feelings of Worthlessness Date Initiated: 10/09/16 Time Initiated: 17:03 Assessment reference: NA Status: Active Anxiety Related to Substance Use Date Initiated: 10/09/16 Time Initiated: 17:04 Assessment reference: NA Status: Active Denial Date Initiated: 10/09/16 Time Initiated: 17:04 Assessment reference: NA Status: Active Treatment assets and liabiliti Patient Assests: cooperative, self-reliant, ADL independent, cognitively intact Patient Liabilities: financial problems, poor support system, relationship conflicts, substance abuse, medical problems - Milieu Protocol Maintain good personal hygiene: daily Encourage regular showers, daily Remind patient to perform daily oral care Maintain personal safety: every shift Educate patient to report safety concerns to staff, every shift Monitor environment for contraband/sharps Medication safety: Monitor for expected outcome, potential side effects: every shift, Assess barriers to learning: every shift, Assess readiness for medication education: every shift Discharge/Continuing Care - Education Needs Education Needs: Patient Medication, Patient Diagnosis/Disease Process, Patient Coping Skills, Patient Community resources, Patient Activities of Daily Living, Patient Nutrition, Patient Health Practices/Safety, Patient Personal Hygiene/ Grooming, Patient Aftercare Safety Plan <Surekha Perkins A - Last Filed: 10/10/16 08:27> 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 Status: Acute Interventions: 10/10/16 08:29 Psychoeducation Psychopharmacology/adjustment of medications as needed/ monitoring possible side effects Evaluate pt on daily basis Compliance with medications and follow up appointments Suicide and homicide risk assessment and prevention Relapse prevention Reduction of symptoms Improve functional status Family intervention As outpatient: cognitive behavioral therapy/interpersonal psychotherapy/ psychodynamic psychotherapy/problem-solving therapy (2) Delirium due to another medical condition Status: Acute Interventions: 10/10/16 08:29 Pt will be seen by medical team as needed Medications will be confirmed and resumed Additional consultation by specialists as needed Lab work as needed (CBC, CMP, TSH, free T4, UA, Urine test for females as needed) CXR as needed EKG Physical therapy valuation as needed (3) Alcohol use disorder Status: Acute Interventions: 10/10/16 08:28 Monitoring withdrawal symptoms Medical detoxification Pharmacotherapy for alcohol/benzos/opioid dependence Maintaining sobriety Relapse prevention Possible rehabilitation Motivational interviewing 12-step programs: AA meetings (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 Status: Acute Interventions: 10/10/16 08:30 Psychoeducation/psychotherapy Psychopharmacology/adjustment of medications as needed/ monitoring possible side effects Evaluate pt on daily basis Compliance with medications and follow up appointments Long acting medication if pt is noncompliant with pill form Suicide and homicide risk assessment and prevention, coping strategies, safety plan Relapse prevention Reduction of symptoms Improve functional status Possible assertive community treatment Cognitive behavioral therapy Family intervention Possible social skill training as outpatient <Marly Young - Last Filed: 10/10/16 15:33>
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
[2016-10-10] MEDS: Multivitamin With Minerals Tab PO SCH (09:07)
[2016-10-10] MEDS: Pantoprazole 40 mg EC Tab PO SCH (09:07)
--- NOTE | 2016-10-10 14:00 | PCM.PYCHPN ---
Psychiatric Progress Note - Psychiatric Progress Note Patient seen today, length of contact: 30min Patient Chief Complaint: "I feel better today, I have a lot of emotions..." Problems Identified/Issues Discussed: Suicide/ homicide prevention, past psychiatric h/o, current psychiatric symptoms , medical problems, risk/benefits and alternatives of medications, medications compliance, coping strategies, substance abuse h/o, relapse prevention, importance of follow up with psychiatrist and therapist, discharge plan. Medical Problems: pancreatitis (resolved), UTI (on abx) Diagnostic Results: Lab Results 10/09/16 07:05: Hemoglobin A1c 5.1 10/09/16 07:05: RPR Nonreactive 10/09/16 07:05: Free T4 0.71 L, TSH 3rd Generation 1.34 10/09/16 07:05: Fasting Glucose 98, Triglycerides 82, Cholesterol 181, LDL Cholesterol Direct 99, HDL Cholesterol 53 Vital Signs Temp Pulse Resp BP Pulse Ox 10/10/16 06:57 98.2 F 86 18 108/70 100 10/09/16 15:56 81 124/84 10/09/16 07:00 97.5 F L 74 16 111/76 100 10/08/16 17:22 20 10/08/16 16:00 72 125/80 10/08/16 13:58 98 F 73 20 123/78 100 UDS was positive for opioids, cannabis, cocaine see medical floor labs DSM 5 Symptoms Update: shortly pt is 40yo female with not known psych h/o, pt denied, pt was transferred from the medical floor where she was admitted for pancreatitis due to alcohol use disorder, UTI, delirium stage, pt was medically stablized, pt was transferred to the psych unit for evaluation of disorganized thoughts, mood symptoms, anxiety, please see consult notes for more detailed information. (on the medical side pt was agitated,was delusional, was referring herself as , was presented to be bizarre). pt was seen today for follow up. pt's hygiene improved very much, pt appeared to be brighter, thought process seems to be more linear and goal directed, but still pt has some circumstantiality. pt said that she tolerated meds well, denied any side effects, none observed. AIMS 0, no EPS. pt said that her father whom she did not talk for the past three years visited her yesterday, "I feel a lot of emotions over his visit", pt said that it was a good visit and pt feels "a lot of weight was taken off from my shoulders, I feel better now", pt said her father asked her to move closer to him and "he wants to be in my life, which is great". pt was minimizing her addiction problems, said that she does not want to go to the rehab and denied having cravings for alcohol and drugs, "I was feeling anxious that is why I was self medicating". pt denied v/a/t hallucinations, denied paranoid ideation. Pt was educated about delirium and psychosis. pt seems to be appreciative. pt reported that she feels depressed, at times hopeless, low energy and difficulties to function. willing to change paxil for prozac. collaterals from pt's by a resident. pt was drinking on daily basis strong family h/o alcohol use disorder pt is for the past 8month as per RN report pt is attending groups, no behavioral issues, compliant with meds, was emotional when pt's father visited pt 10/09/16. Impression: substance induced psychosis (cocain, alcohol, opioids) alcohol withdrawal delirium (improving) delirium due to a GMC (general medical condition) r/o adjustment d/o with anxious and depressed mood r/o substance induced anxiety and depression r/o ASHLEY Medication Change: Yes (paxil d/c, prozac started) Medical Record Reviewed: Yes (labs, reports, consults, meds, RN notes) Consults ordered or reviewed: medical consult appreciated, see notes for more detailed information Mental Status Examination - Cognitive Function Orientation: Person, Place Memory: Intact Attention: Poor (some improvement) Concentration: Poor (some improvement) Association: Loose (but with some improvement) Fund of Knowledge: WNL - Mood Mood: Depressed, Anxious - Affect Affect: Constricted (but more reactive today) - Speech Speech: Appropriate - Formal Thought Process Formal Thought Process: Circumstantial - Suicidal Ideation Suicidal Ideation: No - Homicidal Ideation Homicidal Ideation: No Goal/Treatment Plan - Goal/Treatment Plan Need for Continued Stay: Remain at risks for inpatient hospitalization, Severe depression anxiety, Discharge may exacerbated symptoms, Severe functional impairment Progress Toward Problem(s) and Goals/Treatment Plan: milieu/structure/supportive therapy collaterals from family appreciated, pt gave verbal consent to speak to the , resident called (see notes) Folic Acid 1 mg PO DAILY will be continued LORazepam [Ativan] 2 mg PO Q8 will be continued PRN Magnesium Oxide [Mag-Ox] 400 mg PO BID will be continued Multimineral/Multivitamin [Therapeutic-M Tab] 1 tab PO daily will be continued Nitrofurantoin Macrocrystals [Macrobid] 100 mg PO Q12 will be continued Pantoprazole [Protonix EC Tab] 40 mg PO DAILY will be continued Thiamine [Vitamin B1 Tab] 100 mg PO DAILY will be continued risperdal 0.25mg hs for psychosis paxil will be d/c prozac 10mg started SW evaluation will monitor closely pt does not want to be on naltrexone pt does not want to go to the rehab Estimated Date of D/C: 10/13/16 (will monitor closely)
--- NOTE | 2016-10-10 20:40 | PCM.BM ---
Treatment Plan Problems - Problems identified on initial assessmt Hopelessness/Helplessness Date Initiated: 10/09/16 Time Initiated: 17:03 Assessment reference: NA Status: Active Feelings of Worthlessness Date Initiated: 10/09/16 Time Initiated: 17:03 Assessment reference: NA Status: Active Anxiety Related to Substance Use Date Initiated: 10/09/16 Time Initiated: 17:04 Assessment reference: NA Status: Active Denial Date Initiated: 10/09/16 Time Initiated: 17:04 Assessment reference: NA Status: Active Treatment assets and liabiliti Patient Assests: cooperative, self-reliant, ADL independent, cognitively intact Patient Liabilities: financial problems, poor support system, relationship conflicts, substance abuse, medical problems - Milieu Protocol Maintain good personal hygiene: daily Encourage regular showers, daily Remind patient to perform daily oral care Maintain personal safety: every shift Educate patient to report safety concerns to staff, every shift Monitor environment for contraband/sharps Medication safety: Monitor for expected outcome, potential side effects: every shift, Assess barriers to learning: every shift, Assess readiness for medication education: every shift Milieu Narrative: milieu/structure/supportive therapy collaterals from family appreciated, pt gave verbal consent to speak to the , resident called (see notes) Folic Acid 1 mg PO DAILY will be continued LORazepam [Ativan] 2 mg PO Q8 will be continued PRN Magnesium Oxide [Mag-Ox] 400 mg PO BID will be continued Multimineral/Multivitamin [Therapeutic-M Tab] 1 tab PO daily will be continued Nitrofurantoin Macrocrystals [Macrobid] 100 mg PO Q12 will be continued Pantoprazole [Protonix EC Tab] 40 mg PO DAILY will be continued Thiamine [Vitamin B1 Tab] 100 mg PO DAILY will be continued risperdal 0.25mg hs for psychosis paxil will be d/c prozac 10mg started SW evaluation will monitor closely pt does not want to be on naltrexone pt does not want to go to the rehab Family Contact Family contact: Patient agrees to contact - Goals for Treatment Patient goals for treatment: "To get on the right medications, sleep better and not feel anxious." Discharge/Continuing Care - Education Needs Education Needs: Patient Medication, Patient Diagnosis/Disease Process, Patient Coping Skills, Patient Community resources, Patient Activities of Daily Living, Patient Nutrition, Patient Health Practices/Safety, Patient Personal Hygiene/ Grooming, Patient Aftercare Safety Plan - Discharge Discharge Criteria: Tolerates medication w/o severe side effects, Free of agitation, Normal sleep pattern, Ability to care for self, No longer exhibiting s/s of withdrawal, Reduction of target symptoms - Treatment Team Participation Patient/Family/SO Statement: milieu/structure/supportive therapy collaterals from family appreciated, pt gave verbal consent to speak to the , resident called (see notes) Folic Acid 1 mg PO DAILY will be continued LORazepam [Ativan] 2 mg PO Q8 will be continued PRN Magnesium Oxide [Mag-Ox] 400 mg PO BID will be continued Multimineral/Multivitamin [Therapeutic-M Tab] 1 tab PO daily will be continued Nitrofurantoin Macrocrystals [Macrobid] 100 mg PO Q12 will be continued Pantoprazole [Protonix EC Tab] 40 mg PO DAILY will be continued Thiamine [Vitamin B1 Tab] 100 mg PO DAILY will be continued risperdal 0.25mg hs for psychosis paxil will be d/c prozac 10mg started SW evaluation will monitor closely pt does not want to be on naltrexone pt does not want to go to the rehab
[2016-10-11] MEDS: Pantoprazole 40 mg EC Tab PO SCH (09:08)
[2016-10-11] MEDS: Multivitamin With Minerals Tab PO SCH (09:08)
[2016-10-11 11:05] LABS: URINE BILIRUBIN NEGATIVE (NEGATIVE); URINE BLOOD NEGATIVE (NEGATIVE); URINE GLUCOSE (UA) NEGATIVE (NEGATIVE); URINE KETONE NEGATIVE (NEGATIVE); URINE LEUKOCYTE ESTERASE SMALL Leu/uL (NEGATIVE); URINE PROTEIN NEGATIVE mg/dL (<30 mg/dL); URINE UROBILINOGEN 0.2 E.U./dL (<1 E.U./dL)
[2016-10-11 11:08] LABS: URINE APPEARANCE CLEAR (CLEAR); URINE COLOR YELLOW (YELLOW)
[2016-10-11 12:08] LABS: URINE RBC NEGATIVE /hpf (0-2)
[2016-10-11 12:09] LABS: URINE BACTERIA TRACE (NEG)
--- NOTE | 2016-10-11 16:23 | PCM.PYCHPN ---
Psychiatric Progress Note - Psychiatric Progress Note Patient seen today, length of contact: 30min Patient Chief Complaint: "I feel much better" Problems Identified/Issues Discussed: Suicide/ homicide prevention, past psychiatric h/o, current psychiatric symptoms , medical problems, risk/benefits and alternatives of medications, medications compliance, coping strategies, substance abuse h/o, relapse prevention, importance of follow up with psychiatrist and therapist, discharge plan. Medical Problems: pancreatitis (resolved), UTI (on abx) Diagnostic Results: Lab Results 10/09/16 07:05: Hemoglobin A1c 5.1 10/09/16 07:05: RPR Nonreactive 10/09/16 07:05: Free T4 0.71 L, TSH 3rd Generation 1.34 10/09/16 07:05: Fasting Glucose 98, Triglycerides 82, Cholesterol 181, LDL Cholesterol Direct 99, HDL Cholesterol 53 Vital Signs Temp Pulse Resp BP Pulse Ox 10/10/16 06:57 98.2 F 86 18 108/70 100 10/09/16 15:56 81 124/84 10/09/16 07:00 97.5 F L 74 16 111/76 100 10/08/16 17:22 20 10/08/16 16:00 72 125/80 10/08/16 13:58 98 F 73 20 123/78 100 UDS was positive for opioids, cannabis, cocaine see medical floor labs DSM 5 Symptoms Update: shortly pt is 40yo female with not known psych h/o, pt denied, pt was transferred from the medical floor where she was admitted for pancreatitis due to alcohol use disorder, UTI, delirium stage, pt was medically stablized, pt was transferred to the psych unit for evaluation of disorganized thoughts, mood symptoms, anxiety, please see consult notes for more detailed information. (on the medical side pt was agitated,was delusional, was referring herself as , was presented to be bizarre). pt was seen today for follow up. pt's hygiene improved very much, pt appeared to be brighter, thought process seems to be more linear and goal directed, but still pt has some circumstantiality. pt said that she tolerated meds well, denied any side effects, none observed. AIMS 0, no EPS. pt said that she feels "much better". pt denied being depressed, denied thoughts of harming self or others. pt willing to go to AA and NA meetings and f/u with outpatient psychiatrist. pt is scheduled for d/c tomorrow. as per RN report pt is attending groups, no behavioral issues, compliant with meds. Impression: substance induced psychosis (cocain, alcohol, opioids) alcohol withdrawal delirium (improving) delirium due to a GMC (general medical condition) r/o adjustment d/o with anxious and depressed mood r/o substance induced anxiety and depression r/o ASHLEY Medication Change: No (adjusted yesterday) Medical Record Reviewed: Yes (labs, reports, consults, meds, RN notes) Consults ordered or reviewed: medical consult appreciated, see notes for more detailed information Mental Status Examination - Cognitive Function Orientation: Person, Place Memory: Intact Attention: WNL Concentration: WNL Association: Loose (but with some improvement) Fund of Knowledge: WNL - Mood Mood: Depressed (less ), Anxious (less) - Affect Affect: Constricted (but more reactive today) - Speech Speech: Appropriate - Formal Thought Process Formal Thought Process: Circumstantial - Suicidal Ideation Suicidal Ideation: No - Homicidal Ideation Homicidal Ideation: No Goal/Treatment Plan - Goal/Treatment Plan Need for Continued Stay: Remain at risks for inpatient hospitalization, Severe depression anxiety, Discharge may exacerbated symptoms, Severe functional impairment Progress Toward Problem(s) and Goals/Treatment Plan: milieu/structure/supportive therapy collaterals from family appreciated, pt gave verbal consent to speak to the , resident called (see notes) Folic Acid 1 mg PO DAILY will be continued LORazepam [Ativan] d.c Magnesium Oxide [Mag-Ox] 400 mg PO BID will be continued Multimineral/Multivitamin [Therapeutic-M Tab] 1 tab PO daily will be continued Nitrofurantoin Macrocrystals [Macrobid] 100 mg PO Q12 as per medical team Pantoprazole [Protonix EC Tab] 40 mg PO DAILY will be continued Thiamine [Vitamin B1 Tab] 100 mg PO DAILY will be continued risperdal 0.25mg hs for psychosis prozac 10mg daily for depression and anxiety SW evaluation will monitor closely pt does not want to be on naltrexone pt does not want to go to the rehab Estimated Date of D/C: 10/12/16 (will monitor closely)
[2016-10-12 07:32] VITALS: BP 110/75; PULSE 95; RESP 19; O2SAT 99
[2016-10-12] MEDS: Multivitamin With Minerals Tab PO SCH (08:08)
[2016-10-12] MEDS: Pantoprazole 40 mg EC Tab PO SCH (08:08)
[2016-10-12 12:51] VITALS: TEMP 97.4
--- NOTE | 2016-10-12 15:08 | PCM.PYCHDC ---
Mental Status Examination - Mental Status Examination Orientation: Person, Place, Situation, Time Memory: Intact Mood: Neutral Affect: Broad (and mood congruent) Speech: Appropriate Attention: WNL Concentration: WNL Association: WNL Fund of Knowledge: WNL Formal Thought Process: No Impairment Description of patient's judgement and insight: Pt has improved insight into mental and medical illness, pt was compliant with medications and unit rules and regulations, pt was going to groups, was calm, cooperative, socially appropriate, no behavioral incidents, no agitation, no aggression. Psychotic Thoughts and Behaviors: Pt denied v/a/t hallucinations, denied paranoid ideations, pt does not appear to be psychotic, and thought process is goal directed. Suicidal Ideation: No Current Homicidal Ideation?: No Plan: pt adamantly denied thoughts of harming self or others denied intent or plan. Discharge Summary - Discharge Note Reason for Hospitalization: pt was transferred to the psych inpt unit from [facility] unit for eval psychotic symptoms, disorganized thoughts and behavior. Psychiatric History (includes Medical, Family, Personal Hx): see HPI Laboratory Data: Lab Results 10/11/16 10:30: Urine Color Yellow, Urine Appearance Clear, Urine pH 6.0, Ur Specific [place] 1.010, Urine Protein Negative, Urine Glucose (UA) Negative, Urine Ketones Negative, Urine Blood Negative, Urine Nitrate Negative, Urine Bilirubin Negative, Urine Urobilinogen 0.2, Ur Leukocyte Esterase Small H, Urine RBC Negative, Urine WBC 5 - 10, Ur Epithelial Cells 10 - 12, Urine Bacteria Trace 10/09/16 07:05: Hemoglobin A1c 5.1 10/09/16 07:05: RPR Nonreactive 10/09/16 07:05: Free T4 0.71 L, TSH 3rd Generation 1.34 10/09/16 07:05: Fasting Glucose 98, Triglycerides 82, Cholesterol 181, LDL Cholesterol Direct 99, HDL Cholesterol 53 Vital Signs Temp Pulse Resp BP Pulse Ox 10/12/16 10:39 97.4 F L 10/12/16 09:39 97.2 F L 10/12/16 07:00 97.9 F 95 H 19 110/75 99 10/11/16 16:08 85 126/86 10/11/16 07:00 98.2 F 87 17 106/75 10/10/16 16:00 85 115/77 10/10/16 06:57 98.2 F 86 18 108/70 100 10/09/16 15:56 81 124/84 10/09/16 07:00 97.5 F L 74 16 111/76 100 10/08/16 17:22 20 10/08/16 16:00 72 125/80 10/08/16 13:58 98 F 73 20 123/78 100 Consultations:: List each consultation separately and include: 1. Reason for request. 2. Findings. 3. Follow-up Consultations: medical consult appreciated, see notes for more detailed information Summary of Hospital Course include:: 1. Description of specific treatment plan utilized for patients during their course of treatmen. 2. Summarize the time- course for resolution of acute symptoms and/or regressed behaviors. 3. Describe issues identified and worked on during hospitalization. 4. Describe medication utilized. 5. Describe medical problems identified and treated. 6. Reassessment of suicide risk Summary of Hospital Course: shortly pt is 40yo female with not known psych h/o, pt denied, pt was transferred from the medical floor where she was admitted for pancreatitis due to alcohol use disorder, UTI, delirium stage, pt was medically stablized, pt was transferred to the psych unit for evaluation of disorganized thoughts, mood symptoms, anxiety, please see consult notes for more detailed information. (on the medical side pt was agitated,was delusional, was referring herself as , was presented to be bizarre). initially pt was seen at the tx team meeting, pt is very thin build, almost chahectic female, acceptable personal hygiene, good ADLs. pt presented to be disorganized in thoughts, was saying that about a week ago she seems to be placed in dungeon with "[employer], they placed me on the metal bed, tied my legs and arms, I saw some faces I never seen before", "I had impression that they will do some autopsy on me or something". pt was keep going and going about her experience. from description pt had most likely pt was in her delirium stage which is related to her pancreatitis, alcohol withdrawals, UTI, electrolyte disbalance. pt reported that she was feeling anxious "a little", has difficulties to fall and to stay asleep, and migraines, pt said that she was self medicating with alcohol. Pt was saying that "I am drinking a few shots here and there", pt denied h/o blackouts, h/o withdrawal symptoms, h/o detoxes or rehabs. pt denied hearing voices or seeing things, but obviously is disorganized. pt reported that she has episodes when she feels irritable and "annoyed" by her family members and "I am trying to calm down with weed, it depends, I am not using that that often, may be twice a day". past psych h/o: denied pt denied smoking medical h/o: headaches. social h/o: pt does not work, has two grown kids, . Lab Results 10/09/16 07:05: Hemoglobin A1c 5.1 10/09/16 07:05: Free T4 0.71 L, TSH 3rd Generation 1.34 10/09/16 07:05: Fasting Glucose 98, Triglycerides 82, Cholesterol 181, LDL Cholesterol Direct 99, HDL Cholesterol 53 Vital Signs Temp Pulse Resp BP Pulse Ox 10/09/16 07:00 97.5 F L 74 16 111/76 100 10/08/16 17:22 20 10/08/16 16:00 72 125/80 10/08/16 13:58 98 F 73 20 123/78 100 over the course of this hospitalization patient was stabilized on the following medications: Folic Acid 1 mg PO DAILY Multimineral/MultivitaminPO daily will be continued Nitrofurantoin Macrocrystals [Macrobid] 100 mg PO Q12 for urinary tract infection Pantoprazole [Protonix EC Tab] 40 mg PO DAILY Thiamine [Vitamin B1 Tab] 100 mg PO DAILY risperdal 0.25mg hs for psychosis prozac 20mg daily for depression and anxiety patient tolerated medications well, no side effects observed or reported Based on patient presentation on the medical side and considering the fact that patient has pancreatitis, electrolytes disbalance, urine drug screen was positive for opioids, cocaine, cannabis, alcohol, patient also had urinary tract infection combination of the factors gave patient diagnosis of delirium or substance-induced psychosis. Psychosis improved significantly, mood improved significantly, appetite improved, sleep improved, anxiety is much better. Over the course of this hospitalization pt was attending groups, pt also had medication management, had therapeutic milieu. Overall pt improved significantly, pt's affect became brighter, pt was less depressed, has realistic future oriented plans, pt also does not appear to be psychotic, or anxious, pt was socially appropriate, no behavioral issues, pts insight improved as well and soon pt deemed to be ready for discharge. At the time of the discharge pt denied been depressed, denied thoughts of harming self or others, denied psychotic symptoms, and pt does not appeared to be psychotic, denied been anxious, was considered to pose no threat to self or others, will be following up at [facility] outpatient clinic, information about follow up appointment, time and address provided to the pt, it is patient responsibility to follow up with outpatient clinic, PMD as well as specialists ( see SW note for more detailed information). In case pt will need to obtain results of studies pending at discharge pt was provided with contact information of Psychiatric Inpatient unit [phone] as well as Medical Record Department [phone]. Nicotine patch was offered Counseling about smoking and alcohol cessation provided AA meetings as well as [facility] [place] cessation treatment program information was provided by the pt was provided with prescriptions for all of medications (please see medication reconciliation form) Pt was educated about safety plan in case of worsening of symptoms or in case of suicidal or homicidal ideation call 911 or go to the nearest ER, also was educated to take meds as prescribed and stay away from drugs, pt verbalized understanding. 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 Current Visit: Yes Status: Acute - Final Diagnosis (DSM 5) Condition upon Discharge: GOOD Disposition: HOME/ ROUTINE Follow-up Treatment Plan: At the time of the discharge pt denied been depressed, denied thoughts of harming self or others, denied psychotic symptoms, and pt does not appeared to be psychotic, denied been anxious, was considered to pose no threat to self or others, will be following up at [facility] outpatient clinic, information about follow up appointment, time and address provided to the pt, it is patient responsibility to follow up with outpatient clinic, PMD as well as specialists ( see SW note for more detailed information). In case pt will need to obtain results of studies pending at discharge pt was provided with contact information of Psychiatric Inpatient unit [phone] as well as Medical Record Department [phone]. Nicotine patch was offered Counseling about smoking and alcohol cessation provided AA meetings as well as [facility] [place] cessation treatment program information was provided by the pt was provided with prescriptions for all of medications (please see medication reconciliation form) Pt was educated about safety plan in case of worsening of symptoms or in case of suicidal or homicidal ideation call 911 or go to the nearest ER, also was educated to take meds as prescribed and stay away from drugs, pt verbalized understanding. Prescriptions/Medication Reconciliation: FLUoxetine [Prozac] 10 mg PO DAILY #14 cap Folic Acid 1 mg PO DAILY #14 tab Multimineral/Multivitamin [Therapeutic-M Tab] 1 tab PO DAILY #14 tab risperiDONE [RisperDAL Tab] 0.25 mg PO HS #14 tab Thiamine [Vitamin B1 Tab] 100 mg PO DAILY #14 tab - Smoking Cessation Smoking Cessation Medication prescribed: No Reason for not providing: denied smoking - Antipsychotic Medications Pt discharged on 2 or more routine antipsychotic medications: No
== END 2016-10-12 15:44 | disposition home or self-care (01) | DRG 429 ==
LOC: PSYC 13:13
PROVIDERS: ADMIT Psychiatry & Neurology Psychiatry; ATTEND Psychiatry & Neurology Psychiatry
PROC: GZ3ZZZZ Medication Management (ICD-10-PCS; principal; 2016-10-08)
DX: F06.30 Mood disorder due to known physiological condition, unspecified (principal); F10.231 Alcohol dependence with withdrawal delirium; F05 Delirium due to known physiological condition; K85.90 Acute pancreatitis without necrosis or infection, unspecified; E83.42 Hypomagnesemia; D69.6 Thrombocytopenia, unspecified; N39.0 Urinary tract infection, site not specified; F10.259 Alcohol dependence with alcohol-induced psychotic disorder, unspecified; F41.9 Anxiety disorder, unspecified; F32.9 Major depressive disorder, single episode, unspecified; Z90.49 Acquired absence of other specified parts of digestive tract